=== PATIENT | male | born 1945 | race Caucasian/White ===

== ENCOUNTER 2016-07-21 15:30 | Outpatient (CLI) | payer MEDICARE, OTHER | END 2016-07-21 15:31 | disposition home or self-care (01) | DX: G47.33 Obstructive sleep apnea (adult) (pediatric) (principal) | CPT/HCPCS: 99214; G0463 ==

== ENCOUNTER 2016-08-29 13:12 | Emergency (ER) | payer MEDICARE, OTHER ==
[2016-08-29 13:17] VITALS: BP 164/92
--- NOTE | 2016-08-29 13:25 | ED Physician Documentation ---
PD HPI LOWER EXT INJURY - Stated complaint Stated Complaint: L KNEE PX - Chief complaint Chief Complaint: Ext Problem - History obtained from History obtained from: Patient PD PAST MEDICAL HISTORY - Past Medical History Cardiovascular: None, Arrhythmia Respiratory: None Neuro: None Endocrine/Autoimmune: None GI: GERD, Hepatitis : Benign prostate hypertrophy HEENT: None Psych: None Musculoskeletal: None Derm: None - Past Surgical History Past Surgical History: Yes General: Appendectomy, Other HEENT: Tonsil/Adenoidectomy Derm: Skin cancer surgery - Present Medications Home Medications: Ambulatory Orders Medication Instructions Recorded Confirmed ARIPiprazole [Abilify] 5 mg PO DAILY 10/04/12 09/09/14 Diltiazem HCl [Diltiazem 24Hr ER] 240 mg PO DAILY 10/04/12 09/09/14 Omeprazole [PriLOSEC] 20 mg PO DAILY 10/04/12 09/09/14 Hydrochlorothiazide 25 mg PO DAILY 11/11/13 09/09/14 Ezetimibe/Simvastatin [Vytorin 12/04/13 09/09/14 10-10 mg Tablet] Diltiazem HCl [Diltiazem 24Hr ER] 300 mg PO DAILY #30 cap.er.24h 09/09/14 Potassium Chloride 20 meq PO DAILY #10 tab.er.prt 09/09/14 - Allergies Allergies/Adverse Reactions: Allergies Allergy/AdvReac Type Severity Reaction Status Date / Time No Known Drug Allergies Allergy Verified 08/29/16 13:17 - Social History Does the pt smoke?: No Smoking Status: Never smoker Does the pt drink ETOH?: No Does the pt have substance abuse?: No - POLST Patient has POLST: No Results - Vitals Vitals: Vital Signs - 24 hr 08/29/16 13:15 Temperature 36.7 C Heart Rate 78 Respiratory 14 Rate Blood Pressure 164/92 H O2 Saturation 100 Oxygen O2 Source Room air
[2016-08-29] MEDS ORDERED: ACETAMINOPHEN 325 MG TABLET PO STA (14:24)
[2016-08-29] MEDS ORDERED: ACETAMINOPHEN 325 MG TABLET PO ONE (14:37)
--- NOTE | 2016-08-29 15:13 | ED Physician Documentation ---
History of Present Illness - Stated complaint Stated Complaint: L KNEE PX - Chief complaint Chief Complaint: Ext Problem - Additonal information Additional information: hx from pt 71 y/o male twisted L knee getting up into the truck cannot walk 2/2 pain no other injury otherwise well PD PAST MEDICAL HISTORY - Past Medical History Past Medical History: Yes Cardiovascular: None, Arrhythmia Respiratory: None Neuro: None Endocrine/Autoimmune: None GI: GERD, Hepatitis : Benign prostate hypertrophy HEENT: None Psych: None Musculoskeletal: None Derm: None - Past Surgical History Past Surgical History: Yes General: Appendectomy, Other HEENT: Tonsil/Adenoidectomy Derm: Skin cancer surgery - Present Medications Home Medications: Ambulatory Orders Medication Instructions Recorded Confirmed Omeprazole [PriLOSEC] 20 mg PO DAILY 10/04/12 09/09/14 Ezetimibe/Simvastatin [Vytorin 10 mg PO DAILY 12/04/13 09/09/14 10-10 mg Tablet] Diltiazem HCl [Diltiazem 24Hr ER] 300 mg PO DAILY #30 cap.er.24h 09/09/14 FLUoxetine [PROzac] 10 mg PO DAILY 08/29/16 08/29/16 Heart Medication 08/29/16 - Allergies Allergies/Adverse Reactions: Allergies Allergy/AdvReac Type Severity Reaction Status Date / Time No Known Drug Allergies Allergy Verified 08/29/16 13:17 - Social History Does the pt smoke?: No Smoking Status: Never smoker Does the pt drink ETOH?: No Does the pt have substance abuse?: No - Immunizations Immunizations are current?: Yes - POLST Patient has POLST: No PD ED PE NORMAL - Vitals Vital signs reviewed: Yes - Extremities Extremities: Other (L knee: mild edema TTP anterior aspect medial jt line, mild MCL laxity, no appreciable LCL ACL laxity or catch with meniscal testing, extensor mech intact, hurts to extend but can. MSV intact) Results - Vitals Vitals: Vital Signs - 24 hr 08/29/16 13:15 Temperature 36.7 C Heart Rate 78 Respiratory 14 Rate Blood Pressure 164/92 H O2 Saturation 100 Oxygen O2 Source Room air - Rads (name of study) knee Radiology: See rad report (no acute) Departure - Departure Disposition: 01 Home, Self Care Clinical Impression: Medial collateral ligament sprain of knee Qualifiers: Encounter type: initial encounter Laterality: right Qualified Code(s): S83.411A - Sprain of medial collateral ligament of right knee, initial encounter Condition: Good Instructions: ED Sprain Knee Collateral Ligaments Follow-Up: FRANCESCA SAINI [Primary Care Provider] - [facility] [Provider Group] (to get your blood pressure rechecked - it was high today) Comments: The xray looks fine Based on your exam I suspect that you have injured the medial collateral ligament. Recommend wearing the knee brace when ambulating for the next two weeks Ice and elevation will help the pain and swelling You can also take tylenol for the pain Follow up with orthopedics - you need to call to schedule
--- NOTE | 2016-08-29 15:23 | XRAY Preliminary Report ---
Exam: XR Knee 4 View LT IMPRESSION: Trace knee effusion without evidence of fracture or dislocation. [facility] SITE ID: [id number]
--- NOTE | 2016-08-29 15:26 | XRAY Report ---
EXAM: LEFT KNEE RADIOGRAPHY EXAM DATE: 08/29/2016 02:45 PM. CLINICAL HISTORY: Twisting injury, medial pain, cannot ambulate. COMPARISON: None. TECHNIQUE: 4 views. FINDINGS: Bones: No evidence of fracture. Enthesopathic spurring at the superior aspect of the patella. Joints: Trace knee effusion. Soft Tissues: Normal. No soft tissue swelling. IMPRESSION: Trace knee effusion without evidence of fracture or dislocation. [facility] Referring Provider Line: [phone] SITE ID: [id number]
== END 2016-08-29 15:40 | disposition home or self-care (01) ==
LOC: ED 13:12
DX: S83.411A Sprain of medial collateral ligament of right knee, initial encounter (principal); X50.1XXA Overexertion from prolonged static or awkward postures, initial encounter; V58.4XXA Person boarding or alighting a pick-up truck or van injured in noncollision transport accident, initial encounter; Y93.89 Activity, other specified
CPT/HCPCS: 73564; 99282; 99283; A9270

== ENCOUNTER 2017-07-11 09:26 | Outpatient (CLI) | payer MEDICARE, OTHER ==
[2017-07-11 10:41] LABS: HB2 TOTAL 14.4 g/dL; HEMOGLOBIN A1C 0.6 g/dL
[2017-07-11 10:56] LABS: MAGNESIUM 2.3 mg/dL (1.7-2.8)
== END 2017-07-11 09:27 | disposition home or self-care (01) ==
LOC: LAB 09:26
PROVIDERS: ATTEND Nurse Practitioner
DX: R53.83 Other fatigue (principal); R06.02 Shortness of breath; E66.01 Morbid (severe) obesity due to excess calories; Z68.43 Body mass index [BMI] 50.0-59.9, adult
CPT/HCPCS: 36415; 82607; 83036; 83540; 83735; 84425; 84466

== ENCOUNTER 2017-07-19 08:43 | Outpatient (CLI) | payer MEDICARE, OTHER ==
[2017-07-19 09:15] LABS: BASOPHILS % (AUTO) 0.8 %; EOSINOPHILS # (AUTO) 0.2 10^3/uL (0.0-0.7); EOSINOPHILS % (AUTO) 3.9 %; LYMPHOCYTES # (AUTO) 1.1 10^3/uL (1.5-3.5); LYMPHOCYTES % (AUTO) 21.1 %; MEAN CORPUSCULAR HEMOGLOBIN 27.4 pg (27.0-31.0); MEAN CORPUSCULAR HGB CONC 32.9 g/dL (32.0-36.0); MEAN CORPUSCULAR VOLUME 83.5 fL (80.0-94.0); MEAN PLATELET VOLUME 7.8 fL (7.4-11.4); MONOCYTES # (AUTO) 0.7 10^3/uL (0.0-1.0); NEUTROPHILS # (AUTO) 3.2 10^3/uL (1.5-6.6); NEUTROPHILS % (AUTO) 60.2 %; PLT - PLATELET COUNT 194 10^3/uL (130-450); RED BLOOD COUNT 4.74 10^6/uL (4.70-6.10); RED CELL DISTRIBUTION WIDTH 15.4 % (12.0-15.0); WHITE BLOOD COUNT 5.3 x10^3/uL (4.8-10.8)
[2017-07-19 09:50] LABS: VBG PH 7.416 (7.31-7.41)
[2017-07-19 10:01] LABS: ALBUMIN 3.9 g/dL (3.2-5.5); ALBUMIN/GLOBULIN RATIO 1.2 (1.0-2.2); ALKALINE PHOSPHATASE 49 IU/L (42-121); ALT ALANINE AMINOTRANSFERASE 20 IU/L (10-60); AST ASPARTATE AMINOTRANSFERASE 25 IU/L (10-42); BUN - BLOOD UREA NITROGEN 19 mg/dL (6-20); CALCIUM 8.6 mg/dL (8.5-10.3); CARBON DIOXIDE - CO2 25 mmol/L (21-32); CHLORIDE 104 mmol/L (101-111); CHOL/HDL RATIO 3.3 (<5.0); CHOLESTEROL 137 mg/dL; CREATININE 0.7 mg/dL (0.6-1.2); GFR - MDRD 111 (>89); GLUCOSE 101 mg/dL (70-100); HDL CHOLESTEROL 42 mg/dL; LDL CHOLESTEROL,CALCULATED 83 mg/dL; SODIUM 137 mmol/L (135-145); TOTAL PROTEIN 7.1 g/dL (6.7-8.2); VLDL CHOLESTEROL 12 mg/dL
[2017-07-19 10:12] LABS: THYROID STIMULATING HORMONE 1.55 uIU/mL (0.34-5.60)
[2017-07-19 10:17] LABS: FERRITIN 12.4 ng/mL (23.9-336.2)
== END 2017-07-19 08:44 | disposition home or self-care (01) ==
LOC: LAB 08:43
PROVIDERS: ATTEND Nurse Practitioner
DX: E78.5 Hyperlipidemia, unspecified (principal); R53.83 Other fatigue; R06.02 Shortness of breath; E66.01 Morbid (severe) obesity due to excess calories; Z68.43 Body mass index [BMI] 50.0-59.9, adult
CPT/HCPCS: 36415; 80053; 80061; 82306; 82330; 82728; 82747; 83721; 84443; 85025

== ENCOUNTER 2018-04-26 10:08 | Outpatient (CLI) | payer MEDICARE, OTHER | END 2018-04-26 10:09 | disposition home or self-care (01) | LOC: SC 10:08 | PROVIDERS: ATTEND Nurse Practitioner Family | DX: G47.33 Obstructive sleep apnea (adult) (pediatric) (principal) | CPT/HCPCS: 99214; G0463; 99212 ==

== ENCOUNTER 2018-07-13 07:55 | Outpatient (CLI) | payer MEDICARE, OTHER ==
[2018-07-13 10:18] LABS: BASOPHILS % (AUTO) 0.5 %; EOSINOPHILS # (AUTO) 0.2 10^3/uL (0.0-0.7); EOSINOPHILS % (AUTO) 3.3 %; LYMPHOCYTES # (AUTO) 1.2 10^3/uL (1.5-3.5); LYMPHOCYTES % (AUTO) 20.6 %; MEAN CORPUSCULAR HEMOGLOBIN 29.1 pg (27.0-31.0); MEAN CORPUSCULAR VOLUME 88.3 fL (80.0-94.0); MEAN PLATELET VOLUME 7.3 fL (7.4-11.4); MONOCYTES # (AUTO) 0.7 10^3/uL (0.0-1.0); MONOCYTES % (AUTO) 11.3 %; NEUTROPHILS # (AUTO) 3.8 10^3/uL (1.5-6.6); NEUTROPHILS % (AUTO) 64.3 %; PLT - PLATELET COUNT 223 10^3/uL (130-450); RED BLOOD COUNT 4.79 10^6/uL (4.70-6.10); RED CELL DISTRIBUTION WIDTH 14.6 % (12.0-15.0)
[2018-07-13 10:45] LABS: % IRON SATURATION 14 % (20-50); ALBUMIN 3.9 g/dL (3.2-5.5); ALBUMIN/GLOBULIN RATIO 1.2 (1.0-2.2); ALKALINE PHOSPHATASE 58 IU/L (42-121); ALT ALANINE AMINOTRANSFERASE 23 IU/L (10-60); AST ASPARTATE AMINOTRANSFERASE 23 IU/L (10-42); BILIRUBIN,TOTAL 0.6 mg/dL (0.2-1.0); BUN - BLOOD UREA NITROGEN 16 mg/dL (6-20); CALCIUM 8.9 mg/dL (8.5-10.3); CARBON DIOXIDE - CO2 27 mmol/L (21-32); CHLORIDE 100 mmol/L (101-111); CHOL/HDL RATIO 2.6 (<5.0); CHOLESTEROL 154 mg/dL; CREATININE 0.7 mg/dL (0.6-1.2); GFR - MDRD 111 (>89); GLUCOSE 95 mg/dL (70-100); HDL CHOLESTEROL 60 mg/dL; IRON 55 ug/dL (45-182); LDL CHOLESTEROL,CALCULATED 86 mg/dL; LDL/HDL RATIO 1.4 (<3.6); MAGNESIUM 2.6 mg/dL (1.7-2.8); SODIUM 139 mmol/L (135-145); TOTAL IRON BINDING CAPACITY 381 ug/dL (250-450); TOTAL PROTEIN 7.2 g/dL (6.7-8.2); TRANSFERRIN 272 mg/dL (180-329); VLDL CHOLESTEROL 8 mg/dL
[2018-07-13 10:52] LABS: VBG PH 7.356 (7.31-7.41)
[2018-07-13 11:03] LABS: HB2 TOTAL 14.9 g/dL; HEMOGLOBIN A1C 0.66 g/dL; HEMOGLOBIN A1C % 6.2 % (4.6-6.2)
[2018-07-13 11:16] LABS: THYROID STIMULATING HORMONE 1.91 uIU/mL (0.34-5.60)
[2018-07-13 11:23] LABS: FERRITIN 32.2 ng/mL (23.9-336.2)
== END 2018-07-13 07:56 | disposition home or self-care (01) ==
LOC: LAB 07:55
PROVIDERS: ATTEND Nurse Practitioner
DX: R53.82 Chronic fatigue, unspecified (principal); K91.2 Postsurgical malabsorption, not elsewhere classified; R73.03 Prediabetes; E78.5 Hyperlipidemia, unspecified
CPT/HCPCS: 36415; 80053; 80061; 82306; 82330; 82607; 82728; 82747; 83036; 83540; 83721; 83735; 84425; 84443; 84466; 85025

== ENCOUNTER 2018-12-18 09:11 | Outpatient (CLI) | payer MEDICARE, OTHER ==
[2018-12-18 09:56] LABS: BASOPHILS % (AUTO) 0.7 %; EOSINOPHILS # (AUTO) 0.2 10^3/uL (0.0-0.7); EOSINOPHILS % (AUTO) 4.1 %; HGB - HEMOGLOBIN 13.8 g/dL (14.0-18.0); LYMPHOCYTES # (AUTO) 1.3 10^3/uL (1.5-3.5); LYMPHOCYTES % (AUTO) 22.3 %; MEAN CORPUSCULAR HEMOGLOBIN 28.5 pg (27.0-31.0); MEAN CORPUSCULAR HGB CONC 31.3 g/dL (32.0-36.0); MEAN CORPUSCULAR VOLUME 90.9 fL (80.0-94.0); MEAN PLATELET VOLUME 9.3 fL (7.4-11.4); MONOCYTES # (AUTO) 0.6 10^3/uL (0.0-1.0); MONOCYTES % (AUTO) 11.3 %; NEUTROPHILS # (AUTO) 3.5 10^3/uL (1.5-6.6); NEUTROPHILS % (AUTO) 61.2 %; PLT - PLATELET COUNT 237 10^3/uL (130-450); RED BLOOD COUNT 4.85 10^6/uL (4.70-6.10); WHITE BLOOD COUNT 5.7 x10^3/uL (4.8-10.8)
[2018-12-18 10:20] LABS: HB2 TOTAL 14.7 g/dL; HEMOGLOBIN A1C 0.6 g/dL; HEMOGLOBIN A1C % 5.9 % (4.6-6.2)
[2018-12-18 10:22] LABS: % IRON SATURATION 26 % (20-50); ALBUMIN/GLOBULIN RATIO 1.3 (1.0-2.2); ALKALINE PHOSPHATASE 52 IU/L (42-121); ALT ALANINE AMINOTRANSFERASE 22 IU/L (10-60); AST ASPARTATE AMINOTRANSFERASE 23 IU/L (10-42); BILIRUBIN,TOTAL 0.8 mg/dL (0.2-1.0); BUN - BLOOD UREA NITROGEN 15 mg/dL (6-20); CALCIUM 8.7 mg/dL (8.5-10.3); CARBON DIOXIDE - CO2 26 mmol/L (21-32); CHLORIDE 104 mmol/L (101-111); CHOL/HDL RATIO 2.5 (<5.0); CHOLESTEROL 155 mg/dL; CREATININE 0.7 mg/dL (0.6-1.2); GFR - MDRD 111 (>89); GLUCOSE 95 mg/dL (70-100); HDL CHOLESTEROL 62 mg/dL; IRON 96 ug/dL (45-182); LDL CHOLESTEROL,CALCULATED 80 mg/dL; LDL/HDL RATIO 1.3 (<3.6); MAGNESIUM 2.3 mg/dL (1.7-2.8); SODIUM 139 mmol/L (135-145); TOTAL IRON BINDING CAPACITY 370 ug/dL (250-450); TOTAL PROTEIN 7.1 g/dL (6.7-8.2); TRANSFERRIN 264 mg/dL (180-329); VLDL CHOLESTEROL 13 mg/dL
[2018-12-18 10:31] LABS: THYROID STIMULATING HORMONE 1.43 uIU/mL (0.34-5.60)
== END 2018-12-18 09:12 | disposition home or self-care (01) ==
LOC: LAB 09:11
PROVIDERS: ATTEND Nurse Practitioner
DX: K91.2 Postsurgical malabsorption, not elsewhere classified (principal); R53.83 Other fatigue; Z98.84 Bariatric surgery status; E78.5 Hyperlipidemia, unspecified; R73.03 Prediabetes
CPT/HCPCS: 36415; 80053; 80061; 82306; 82607; 82747; 83036; 83540; 83721; 83735; 83970; 84425; 84443; 84466; 85025

== ENCOUNTER 2018-12-22 09:43 | Outpatient (CLI) | payer MEDICARE, OTHER ==
[2018-12-22 09:58] LABS: VBG PH 7.382 (7.31-7.41)
== END 2018-12-22 09:44 | disposition home or self-care (01) ==
LOC: LAB 09:43
PROVIDERS: ATTEND Nurse Practitioner
DX: K91.2 Postsurgical malabsorption, not elsewhere classified (principal); Z98.84 Bariatric surgery status; R53.83 Other fatigue; E78.5 Hyperlipidemia, unspecified; R73.03 Prediabetes
CPT/HCPCS: 82330

== ENCOUNTER 2019-03-05 16:40 | Outpatient (CLI) | payer MEDICARE, OTHER | END 2019-03-05 16:41 | disposition critical access hospital (66) | LOC: EMS 16:40 | PROVIDERS: ATTEND Surgery | DX: S06.9X1A Unspecified intracranial injury with loss of consciousness of 30 minutes or less, initial encounter (principal); W18.39XA Other fall on same level, initial encounter; Y92.001 Dining room of unspecified non-institutional (private) residence as the place of occurrence of the external cause; R10.9 Unspecified abdominal pain; R41.0 Disorientation, unspecified | CPT/HCPCS: A0425; A0429 ==

== ENCOUNTER 2019-03-05 16:51 | Emergency (ER) | payer MEDICARE, OTHER ==
--- NOTE | 2019-03-05 17:28 | ED Physician Documentation ---
History of Present Illness - Stated complaint Stated Complaint: GLF - Chief complaint Chief Complaint: Trauma Hd/Nk - History obtained from History obtained from: Patient, Family, EMS - History of Present Illness Timing: Today Pain level max: 8 Pain level now: 6 Improved by: rest Worsened by: movement - Additonal information Additional information: 74-year-old male states that he does not recall what happened. His states that he was trying to tie his shoes when he fell backwards striking his head on the floor. She did not see him fall. Patient does not recall anything prior to the event. Unclear if this was syncope or a mechanical fall. Patient denies any cardiac history. Denies any history of syncope. Denies any alcohol or drug use. He is complaining of neck and head pain. He did sustain a laceration to the occiput per EMS. Placed in a cervical collar. Brought in for further evaluation. No low back pain. No hip pain. No numbness or tingling. No focal neurological deficits. Review of Systems Ten Systems: 10 systems reviewed and negative Constitutional: denies: Fever, Chills Ears: denies: Drainage/discharge Nose: denies: Rhinorrhea / runny nose, Congestion Throat: denies: Sore throat Cardiac: denies: Chest pain / pressure Respiratory: denies: Dyspnea, Cough, Wheezing GI: denies: Abdominal Pain, Nausea, Vomiting, Diarrhea Skin: denies: Rash Musculoskeletal: denies: Back pain Neurologic: denies: Focal weakness, Numbness, Confused, Altered mental status, LOC PD PAST MEDICAL HISTORY - Past Medical History Past Medical History: Yes Cardiovascular: None, Arrhythmia Respiratory: None Endocrine/Autoimmune: None GI: GERD, Hepatitis : Benign prostate hypertrophy HEENT: None Psych: None Musculoskeletal: None Derm: None - Past Surgical History Past Surgical History: Yes General: Appendectomy, Other HEENT: Tonsil/Adenoidectomy Derm: Skin cancer surgery - Present Medications Home Medications: Ambulatory Orders Medication Instructions Recorded Confirmed Omeprazole [PriLOSEC] 20 mg PO DAILY 10/04/12 09/09/14 Ezetimibe/Simvastatin [Vytorin 10 mg PO DAILY 12/04/13 09/09/14 10-10 mg Tablet] dilTIAZem HCl [Diltiazem 24Hr ER] 300 mg PO DAILY #30 cap.er.24h 09/09/14 FLUoxetine [PROzac] 10 mg PO DAILY 08/29/16 08/29/16 Heart Medication 08/29/16 Ibuprofen [Motrin] 800 mg PO Q8H PRN #30 tablet 03/05/19 - Allergies Allergies/Adverse Reactions: Allergies Allergy/AdvReac Type Severity Reaction Status Date / Time No Known Drug Allergies Allergy Verified 03/05/19 17:05 - Social History Does the pt smoke?: No Smoking Status: Never smoker Does the pt drink ETOH?: No Does the pt have substance abuse?: No - Immunizations Immunizations are current?: Yes - POLST Patient has POLST: No PD ED PE NORMAL - Vitals Vital signs reviewed: Yes - General General: Alert and oriented X 3, No acute distress, Well developed/nourished - HEENT HEENT: PERRL, Ears normal, Moist mucous membranes, Pharynx benign, Other (Laceration to the occiput. No palpable skull fracture.) - Neck Neck: Supple, no meningeal sign, Other (Midline tenderness palpation. No step- off or deformity.) - Cardiac Cardiac: RRR, Strong equal pulses - Respiratory Respiratory: No respiratory distress, Clear bilaterally - Abdomen Abdomen: Soft, Non tender, Non distended - Back Back: No spinal TTP - Derm Derm: Warm and dry - Extremities Extremities: No deformity, No tenderness to palpate, Normal ROM s pain - Neuro Neuro: Alert and oriented X 3, architectural technologist 2-12 intact, No motor deficit, No sensory deficit, Normal speech Eye Opening: Spontaneous Motor: Obeys Commands Verbal: Oriented GCS Score: 15 - Psych Psych: Normal mood, Normal affect Results - Vitals Vitals: Vital Signs - 24 hr 03/05/19 03/05/19 03/05/19 17:00 18:00 20:09 Temperature 36.6 C 36.6 C Heart Rate 70 69 97 Respiratory 16 21 18 Rate Blood Pressure 189/79 H 201/99 H 186/103 H O2 Saturation 99 23 L 99 Oxygen O2 Source Room air - EKG (time done) 1750 Rate: Rate (enter#) (67) Rhythm: NSR [place]: Normal Intervals: Normal [place] QRS: Normal Ischemia: Normal ST segments - Labs Labs: Laboratory Tests 03/05/19 03/05/19 03/05/19 17:30 17:30 17:30 WBC 7.3 RBC 4.74 Hgb 14.0 Hct 43.8 MCV 92.4 MCH 29.5 MCHC 32.0 RDW 13.7 Plt Count 228 MPV 9.2 Neut # (Auto) 4.6 Lymph # (Auto) 1.5 [place] # (Auto) 0.8 Eos # (Auto) 0.3 Baso # (Auto) 0.1 Absolute Nucleated RBC 0.00 Nucleated RBC % 0.0 Sodium 138 Potassium 3.7 Chloride 101 Carbon Dioxide 29 Anion Gap 8.0 BUN 15 Creatinine 0.7 Estimated GFR (MDRD) 111 Glucose 93 Calcium 9.1 Total Bilirubin 0.5 AST 25 ALT 23 Alkaline Phosphatase 52 Troponin I High Sens Total Protein 7.4 Albumin 4.2 Globulin 3.2 Albumin/Globulin Ratio 1.3 Lipase 27 Urine Color Urine Clarity Urine pH Ur Specific [place] Urine Protein Urine Glucose (UA) Urine Ketones Urine Occult Blood Urine Nitrite Urine Bilirubin Urine Urobilinogen Ur Leukocyte Esterase Urine RBC Urine WBC Ur Squamous Epith Cells Urine Bacteria Ur Microscopic Review Urine Culture Comments Urine Opiates Screen Ur Oxycodone Screen Urine Methadone Screen Ur Propoxyphene Screen Ur Barbiturates Screen Ur Tricyclics Screen Ur Phencyclidine Scrn Ur Amphetamine Screen U Methamphetamines Scrn U Benzodiazepines Scrn Urine Cocaine Screen U Cannabinoids Screen Ethyl Alcohol < 5.0 03/05/19 03/05/19 17:30 19:20 WBC RBC Hgb Hct MCV MCH MCHC RDW Plt Count MPV Neut # (Auto) Lymph # (Auto) [place] # (Auto) Eos # (Auto) Baso # (Auto) Absolute Nucleated RBC Nucleated RBC % Sodium Potassium Chloride Carbon Dioxide Anion Gap BUN Creatinine Estimated GFR (MDRD) Glucose Calcium Total Bilirubin AST ALT Alkaline Phosphatase Troponin I High Sens 5.7 Total Protein Albumin Globulin Albumin/Globulin Ratio Lipase Urine Color YELLOW Urine Clarity CLEAR Urine pH 7.0 Ur Specific [place] 1.015 Urine Protein NEGATIVE Urine Glucose (UA) NEGATIVE Urine Ketones NEGATIVE Urine Occult Blood SMALL H Urine Nitrite NEGATIVE Urine Bilirubin NEGATIVE Urine Urobilinogen 0.2 (NORMAL) Ur Leukocyte Esterase NEGATIVE Urine RBC 6-10 H Urine WBC 0-3 Ur Squamous Epith Cells RARE Squamous Urine Bacteria Rare Ur Microscopic Review INDICATED Urine Culture Comments NOT INDICATED Urine Opiates Screen NEGATIVE Ur Oxycodone Screen NEGATIVE Urine Methadone Screen NEGATIVE Ur Propoxyphene Screen NEGATIVE Ur Barbiturates Screen NEGATIVE Ur Tricyclics Screen NEGATIVE Ur Phencyclidine Scrn NEGATIVE Ur Amphetamine Screen NEGATIVE U Methamphetamines Scrn NEGATIVE U Benzodiazepines Scrn NEGATIVE Urine Cocaine Screen NEGATIVE U Cannabinoids Screen NEGATIVE Ethyl Alcohol - Rads (name of study) head CT Radiology: Prelim report reviewed, EMP read contemporaneously, See rad report (A 13 mm scalp/subcutaneous hematoma in right parietal location with no underlying acute displaced calvarial fracture. No acute traumatic intracranial abnormality. ) C spine CT Radiology: Prelim report reviewed, EMP read contemporaneously, See rad report (1. No acute cervical spine abnormalities. 2. Multilevel degenerative disk disease, worst at C5-C6 and C6-C7. ) Procedures - Laceration (location) Occiput Length in cm: 5 Wound type: Linear, Into subcut fat, Clean Neurovascular status: Sensory intact, Vascular intact Wound Preparation: Irrigated copiously NS Skin layer closure: [place] Other: Patient tolerated well, No complications, Neurovascular intact, Tetanus UTD Complexity: Simple PD MEDICAL DECISION MAKING - ED course Complexity details: reviewed results, re-evaluated patient, considered differential, d/w patient, d/w family ED course: Patient sustained a ground-level fall today. He and his do not believe it was a syncopal event. No acute findings on laboratory testing, telemetry, EKG. No acute findings on head CT or cervical spine CT. C-collar removed after cervical spine CT. Laceration repaired. Tolerated well. Patient and family counseled regarding signs and symptoms for which I believe and urgent re- evaluation would be necessary. Patient with good understanding of and agreement to plan and is comfortable going home at this time This document was made in part using voice recognition software. While efforts are made to proofread this document, sound alike and grammatical errors may occur. Departure - Departure Disposition: 01 Home, Self Care Clinical Impression: Fall Qualifiers: Encounter type: initial encounter Qualified Code(s): W19.XXXA - Unspecified fall, initial encounter Head injury Qualifiers: Encounter type: initial encounter Qualified Code(s): S09.90XA - Unspecified injury of head, initial encounter Scalp laceration Qualifiers: Encounter type: initial encounter Qualified Code(s): S01.01XA - Laceration without foreign body of scalp, initial encounter Condition: Good Instructions: ED Head Injury Closed, ED Laceration All Follow-Up: Nahtan Loaiza MD [Primary Care Provider] - Within 1 week Prescriptions: Ibuprofen [Motrin] 800 mg PO Q8H PRN #30 tablet PRN Reason: PAIN &/OR FEVER Comments: Follow-up with your doctor in approximately 10-14 days for staple removal. Return if you notice redness, swelling or drainage from the wound. Do not drink alcohol or drive while on narcotic pain medicine. Note that many narcotic pain relievers also contain tylenol/acetaminophen. Please ensure that your total dose of acetaminophen from all sources does not exceed 3 grams (3000mg) per day. You may constipated on this medication, take a stool softener such as "Colace" twice a day while you are on it. Also recommend a [id number] laxative such as senna or MiraLAX any day that you do not have a bowel movement. If you received narcotic pain medication in the emergency department, do not drive or operate machinery for the next 24 hours. Discharge Date/Time: 03/05/19 20:23
[2019-03-05 17:41] LABS: BASOPHILS # (AUTO) 0.1 10^3/uL (0.0-0.1); BASOPHILS % (AUTO) 0.7 %; EOSINOPHILS # (AUTO) 0.3 10^3/uL (0.0-0.7); EOSINOPHILS % (AUTO) 3.4 %; LYMPHOCYTES # (AUTO) 1.5 10^3/uL (1.5-3.5); LYMPHOCYTES % (AUTO) 20.8 %; MEAN CORPUSCULAR HEMOGLOBIN 29.5 pg (27.0-31.0); MEAN CORPUSCULAR VOLUME 92.4 fL (80.0-94.0); MEAN PLATELET VOLUME 9.2 fL (7.4-11.4); MONOCYTES # (AUTO) 0.8 10^3/uL (0.0-1.0); MONOCYTES % (AUTO) 11.3 %; NEUTROPHILS # (AUTO) 4.6 10^3/uL (1.5-6.6); NEUTROPHILS % (AUTO) 63.5 %; PLT - PLATELET COUNT 228 10^3/uL (130-450); RED BLOOD COUNT 4.74 10^6/uL (4.70-6.10); RED CELL DISTRIBUTION WIDTH 13.7 % (12.0-15.0); WHITE BLOOD COUNT 7.3 x10^3/uL (4.8-10.8)
[2019-03-05 18:03] LABS: ALBUMIN 4.2 g/dL (3.2-5.5); ALBUMIN/GLOBULIN RATIO 1.3 (1.0-2.2); BILIRUBIN,TOTAL 0.5 mg/dL (0.2-1.0); CALCIUM 9.1 mg/dL (8.5-10.3); CREATININE 0.7 mg/dL (0.6-1.2); TOTAL PROTEIN 7.4 g/dL (6.7-8.2)
--- NOTE | 2019-03-05 18:25 | CT Report ---
Reason: Head trauma, mod-severe Procedure Date: 03/05/2019 Accession Number: [id number] / [id number] Procedure: CT - HEAD WO CPT Code: Final Report FULL RESULT: EXAM: CT HEAD EXAM DATE: 03/05/2019 05:50 PM. CLINICAL HISTORY: Head trauma, mod-severe. COMPARISON: None. TECHNIQUE: Multiaxial CT images were obtained from the foramen magnum to the vertex. Reformats: Sagittal and coronal. IV contrast: None. In accordance with CT protocol optimization, one or more of the following dose reduction techniques were utilized for this exam: automated exposure control, adjustment of mA and/or KV based on patient size, or use of iterative reconstructive technique. FINDINGS: Parenchyma: No intraparenchymal hemorrhage. No evidence of mass, midline shift, or CT findings of infarction. Wolf-white differentiation is distinct. Extraaxial Spaces: Normal for age. No subdural or epidural collections identified on. Ventricles: Normal in size and position. Sinuses and Orbits: Imaged paranasal sinuses, orbits, and mastoids show no significant abnormality. Bones: No evidence of fracture or calvarial defect. Other: A 13 mm scalp/subcutaneous hematoma in right parietal location with no underlying acute displaced calvarial fracture. IMPRESSION: A 13 mm scalp/subcutaneous hematoma in right parietal location with no underlying acute displaced calvarial fracture. No acute traumatic intracranial abnormality. [facility]
--- NOTE | 2019-03-05 18:33 | CT Report ---
Reason: Neck trauma, midline tenderness Procedure Date: 03/05/2019 Accession Number: [id number] / [id number] Procedure: CT - CERVICAL SPINE WO CPT Code: Final Report FULL RESULT: EXAM: CT CERVICAL SPINE WITHOUT CONTRAST DATE: 03/05/2019 05:50 PM. HISTORY: Neck trauma. Midline tenderness. COMPARISONS: None. TECHNIQUE: Thin-section axial images were acquired of the cervical spine without contrast. Post-processing: Coronal and sagittal reformats. Other: None. In accordance with CT protocol optimization, one or more of the following dose reduction techniques were utilized for this exam: automated exposure control, adjustment of mA and/or KV based on patient size, or use of iterative reconstructive technique. FINDINGS: Alignment: Loss of normal cervical lordosis. No scoliosis or spondylolisthesis. Bones: No fracture or bone lesion. Interspace Levels/Facets: C1-C2: Anterior degenerative changes. C2-C3: Unremarkable. C3-C4: Unremarkable. C4-C5: Moderate disk space narrowing and spurring. C5-C6: Severe disk space narrowing with spurring. C6-C7: Severe disk space narrowing with spurring. C7-T1: Unremarkable. Musculature: Normal. No fatty atrophy. Other: The paravertebral and prevertebral soft tissues are unremarkable. The lung apices are clear. IMPRESSION: 1. No acute cervical spine abnormalities. 2. Multilevel degenerative disk disease, worst at C5-C6 and C6-C7. [facility]
[2019-03-05 19:29] LABS: BILIRUBIN,URINE NEGATIVE (NEGATIVE); GLUCOSE, URINE (UA) NEGATIVE (NEGATIVE); KETONES,URINE (UA) NEGATIVE (NEGATIVE); LEUKOCYTE ESTERASE, URINE NEGATIVE (NEGATIVE); MUDS CUTOFF CONCENTRATIONS CUTOFF CONC BELOW:; NITRITE,URINE NEGATIVE (NEGATIVE); OCCULT BLOOD,URINE SMALL (NEGATIVE); PROTEIN,URINE NEGATIVE (NEGATIVE); UROBILINOGEN,URINE 0.2 (NORMAL) E.U./dL (NORMAL)
[2019-03-05 19:31] LABS: CLARITY,URINE CLEAR (CLEAR)
[2019-03-05 19:42] LABS: AMPHETAMINE SCREEN,URINE NEGATIVE (NEGATIVE); BENZODIAZEPINES SCREEN, URINE NEGATIVE (NEGATIVE); COCAINE SCREEN URINE NEGATIVE (NEGATIVE); METHADONE SCREEN, URINE NEGATIVE (NEGATIVE); METHAMPHETAMINES SCREEN, URINE NEGATIVE (NEGATIVE); OPIATE SCREEN, URINE NEGATIVE (NEGATIVE); OXYCODONE SCREEN, URINE NEGATIVE (NEGATIVE); PROPOXYPHENE SCREEN, URINE NEGATIVE (NEGATIVE); TRICYCLIC ANTIDEPRESSANT,URINE NEGATIVE (NEGATIVE)
[2019-03-05 19:56] LABS: BACTERIA,URINE Rare /HPF (None Seen); SQUAMOUS EPITHELIAL CELL,UR RARE Squamous (<= Few)
[2019-03-05] MEDS ORDERED: KETOROLAC 60 MG/2 ML VIAL IM STA (19:58)
[2019-03-05] MEDS ORDERED: HYDROcod/ACET 5/325 Prepack 4 PO STA (19:59)
[2019-03-05 20:10] VITALS: BP 186/103
== END 2019-03-05 20:23 | disposition home or self-care (01) ==
LOC: ED 16:51
DX: S01.01XA Laceration without foreign body of scalp, initial encounter (principal); S09.90XA Unspecified injury of head, initial encounter; W18.30XA Fall on same level, unspecified, initial encounter; Y93.89 Activity, other specified; M50.322 Other cervical disc degeneration at C5-C6 level
CPT/HCPCS: 12002; 36415; 70450; 72125; 80053; 80306; 80320; 81001; 81003; 83690; 84484; 85025; 87086; 93005; 96372; 99284

== ENCOUNTER 2019-05-01 13:44 | Outpatient (CLI) | payer MEDICARE, OTHER ==
[2019-05-01 15:06] VITALS: BP 160/88
--- NOTE | 2019-05-01 15:06 | SLEEP CARE CONSULTATION ---
Information from patient questionnaire entered by Radha Kaur. I have reviewed and concur with the information entered by Radha Kaur. This document represents the service I personally performed and the decisions made by me, Adrianne Draper, RN, MSN, [employer]. History of Present Illness Previous diagnosis: Severe, Obstructive Sleep Apnea-Hypopnea Syndrome AHI: 78.8 Reason for follow up: annual Equipment type: CPAP Equipment obtained from: [employer] Mask style: Full face (Air Fit) Mask brand: Resmed Backup mask available: Yes (old mask ) Last cushion change: a few days Prior sleep studies: Yes Year and Where: [facility] CPAP Compliance Data - Data Reviewed with Patient Average duration of nightly device use: 6h 47s Compliance rate %: 81.7 Current pressure setting (cmH2O): 20 Humidity settin Average residual AHI: 6.5 Average large leak: 13m 8s Subjective Patient concerns: reports: mask leak noise (as cushion gets older. This occurs before due to be covered by insurance. Wipes used to clean inside of mask but not what touches face. ), dry mouth, nose, throat (only when reservoir dry - rare). denies: aerophagia, mask discomfort, air blowing in eyes, condensation in mask/hose, nasal congestion, epistaxis Observed to snore while using device: No Current pressure setting perceived as: comfortable On therapy, patient: reports: sleeping better (cannot sleep without it ), awakening more refreshed, being more awake and alert during the day, more rested overall. denies: drowsiness while driving Initial Parker Sleepiness Scale score: 16 Current Parker Sleepiness Scale score: 10 Allergies and Home Medications Known drug allergies: No Home medication list reviewed: Yes Allergy and home medication list: Medication Name (generic/name brand) Strength & Dosage Tamsulosin HCI 0.4mg cap one daily Vytorin (Ezetimibe-Simvastatin) 10-40mg tab one daily Pramipexole Dihydrochloride 0.25mg tab 1-2 at dinner time Lisinopril 10mg tab one daily Aspirin 81mg tab one daily Bariatric Multivitamin Bid As directed Calcium Citrate Bid As directed Review of Systems Review of systems same as previous: No (syncope in February - fractured skull - CT scan / holter monitor negative) Physical Exam Blood Pressure: 160/88 Cuff size: long Heart Rate: 68 O2 Saturation: 98 Height: 5 ft 11 in Weight: 343 lb Weight change since last visit: gained 12 pounds Body Mass Index: 47.8 BMI Classification: Morbidly Obese Impression and Plan 1. Obstructive Sleep Apnea-Hypopnea Syndrome, severe , with good treatment compliance and slightly elevated residual AHI. On CPAP therapy, the patient has better sleep quality and is more rested overall. Elevated residual AHI could be from his mask leaks as well as his increase in weight. Thus he is advised to clean mask more thoroughly daily. Cleaning PAP equipment questions answered and importance of regular cleaning discussed. Daily cleaning of the mask can be incorporated into routine by completing during time when patient brushes teeth in the morning. Regularly cleaning the mask will reduce incidence of skin irritation that can occur from accumulation of skin oils on the skin and mask leaks. The humidifier is recommended to be emptied daily to allow it to dry out thoroughly between use. The rest of the equipment should be cleaned weekly. Reference sheet given. Patient advised to check manual for further questions. Patient has gained weight. Currently patients BMI is 47.8obesity class. Obesity increases the risk of apnea, CPAP pressure requirements and overall health risks especially cardiovascular and diabetes. Thus patient is advised to lose weight. Weight loss can be done with reducing portion size, reducing refined foods and balancing content with vegetables, fruit and protein. In addition tracking food intake will allow awareness of how to modify diet to achieve weight loss goals. Also eating more slowly will allow more awareness of food intake and enjoyment of food while assisting patient to modify intake at each meal. A diet consultation can be helpful in achieving optimal weight loss goals. He has worked with one in the past The BMI chart was reviewed. The patient would like to reduce to 300 pounds bringing their BMI down to about 42. Patient encouraged to discuss their weight loss goals with their PCP and consider a referral to a overhead crane technician. He would eventually like to get down to about 200 pounds with BMI 28. The patient's CPAP pressure [range should accommodate some weight loss. Symptoms to report for additional pressure adjustment discussed. If weight loss and mask leaks control does not reduce residual AHI, he may required a BiPAP to control his apnea. The process discussed. It may require another sleep study to find the o Patient's apnea severity and rationale for treatment to reduce apnea, improve s leep quality and reduce cardiovascular and cerebrovascular events was reviewed. I also reviewed the benefit of consistent device use of CPAP for hypertension, depression/anxiety. 2. Elevated blood pressure, 160/90, no chest pain pain or short ness of breath. Monitors at home and running in yellow on wrist BP cuff. He was advised of health risks of elevated blood pressure not well controlled and to monitor at home and follow up with PCP for further evaluation. BP monitor card given. He is advised to write down numbers not color indicators. Patient agreed with plan. * Continue CPAP pressure at 20 cmH2O * Implement cleaning methods discussed. * Notify me if snoring with mask or feeling that the pressure is too much or too little * Attempt to lose weight * Follow up with PCP for BP evaluation and referral. * Call this office if any problems using CPAP * Return for follow up in 3 months, or sooner if concerns arise Time Spent with Patient (minutes): 30 I spent 100% of this visit face to face with the patient with greater than 50% of this was spent time counseling the patient and coordination of care.
== END 2019-05-01 13:45 | disposition home or self-care (01) ==
LOC: SC 13:44
PROVIDERS: ATTEND Nurse Practitioner Family
DX: G47.33 Obstructive sleep apnea (adult) (pediatric) (principal); E66.01 Morbid (severe) obesity due to excess calories; Z68.42 Body mass index [BMI] 45.0-49.9, adult; R03.0 Elevated blood-pressure reading, without diagnosis of hypertension
CPT/HCPCS: 99214; G0463; 99212

== ENCOUNTER 2019-05-26 12:57 | Outpatient (CLI) | payer MEDICARE, OTHER ==
--- NOTE | 2019-05-27 04:53 | Ultrasound Report ---
Reason: FREQUENCY OF MICTURITION Procedure Date: 05/26/2019 Accession Number: [id number] / [id number] Procedure: US - Bladder CPT Code: Final Report FULL RESULT: EXAM: PELVIS ULTRASOUND, LIMITED EXAM DATE: 05/27/2019. CLINICAL HISTORY: FREQUENCY OF MICTURITION. COMPARISON: None. TECHNIQUE: Real-time scanning was performed with static images obtained. FINDINGS: Bladder: The initial bladder volume was 150 mL. A 82 mL postvoid residual bladder volume is noted. Bilateral ureteral jets documented. Increased wall thickness with trabeculation. No masses evident. Other: Enlarged prostate volume 54 mL. IMPRESSION: 82 mL residual post void bladder volume. Trabeculated bladder. Prostatic hypertrophy. RADIA
== END 2019-05-26 12:58 | disposition home or self-care (01) ==
LOC: DI 12:57
PROVIDERS: ATTEND Internal Medicine
DX: N40.1 Benign prostatic hyperplasia with lower urinary tract symptoms (principal); R35.0 Frequency of micturition; N32.89 Other specified disorders of bladder
CPT/HCPCS: 76857

== ENCOUNTER 2019-08-01 13:58 | Outpatient (CLI) | payer MEDICARE, OTHER ==
--- NOTE | 2019-08-01 13:50 | SLEEP CARE CONSULTATION ---
Information from patient questionnaire entered by Helena Deshpande. I have reviewed and concur with the information entered by Helena Deshpande. This document represents the service I personally performed and the decisions made by me, Adrianne Draper, RN, MSN, AUTOMATION TECHNICIAN. History of Present Illness Service Date and Time: 08/01/2019 1330 Previous diagnosis: Very Severe, Obstructive Sleep Apnea-Hypopnea Syndrome AHI: 78.8 (in 2009) Reason for follow up: three month Equipment type: CPAP Equipment obtained from: [employer] (getting supplies supplies as needed) Mask style: Full face Backup mask available: Yes (old mask ) Last cushion change: last week Year and Where: 2009 - [facility] Type of Sleep Study: Polysomnography CPAP Compliance Data - Data Reviewed with Patient Average duration of nightly device use: 6.1 Compliance rate %: 90 (90 days) Current pressure setting (cmH2O): 20 Humidity settin Heated hose settin Average residual AHI: 5.0 Average large leak: 2 min 50 sec Subjective Patient concerns: reports: mask leak noise (only when needs to change mask ). denies: aerophagia, mask discomfort, air blowing in eyes, condensation in mask/hose, nasal congestion, dry mouth, nose, throat, epistaxis, other Observed to snore while using device: No Current pressure setting perceived as: comfortable (as long as uses the ramp) On therapy, patient: reports: sleeping better, awakening more refreshed, being more awake and alert during the day, more rested overall. denies: drowsiness while driving Initial [place] Sleepiness Scale score: 16 (in 2009) Allergies and Home Medications Home medication list reviewed: No Review of Systems Review of systems same as previous: No (plantar fascitis - PT treatment ) Physical Exam Height: 5 ft 11 in Weight: 330 lb (home weight ) Weight change since last visit: lost 5 pounds Body Mass Index: 46.0 BMI Classification: Morbidly Obese Impression and Plan 1. Obstructive Sleep Apnea-Hypopnea Syndrome, very severe, with good treatment compliance and good apnea control. On CPAP therapy, the patient has better sleep quality and is more rested overall. He is very pleased with CPAP treatment. He does not sleep without it. He is continuing to work on weight loss. He is working with his palliative medicine physician since his bariatric surgery. I praised him on his success so far. Obesity can increase health risks similar to untreated severe Sleep apnea. I explained how significant weight loss can reduce apnea risk as well as CPAP pressure requirements. Symptoms to report for CPAP pressure reduction discussed with significant weight loss. Patient's apnea severity and rationale for treatment to reduce apnea, improve sleep quality and reduce hypertension, cardiovascular and cerebrovascular events was reviewed. * Continue CPAP pressure at 20 cmH2O * Notify me if snoring with mask or feeling that the pressure is too much or too little * Continue to lose weight * Call this office if any problems using CPAP * Return for follow up in 1 year , or sooner if concerns arise Visit Type: Telehealth Phone (to reduce risk of Covid 19 exposure) Patient Location: Home Location of Provider: Home Patient agrees and consents to this telehealth visit type: Yes Patient agrees to have their insurance billed: Yes Time Spent with Patient (minutes): 10 Provider Statement: I spent 100% of the Telehealth Phone Call with the patient with greater than 50% spent counseling the patient and coordination of care.
== END 2019-08-01 13:59 | disposition home or self-care (01) ==
LOC: SC 13:58
PROVIDERS: ATTEND Nurse Practitioner Family
DX: G47.33 Obstructive sleep apnea (adult) (pediatric) (principal); E66.01 Morbid (severe) obesity due to excess calories; Z68.42 Body mass index [BMI] 45.0-49.9, adult

== ENCOUNTER 2020-01-24 16:46 | Outpatient (CLI) | payer MEDICARE, OTHER | END 2020-01-24 16:47 | disposition home or self-care (01) | LOC: COV 16:46 | PROVIDERS: ATTEND Family Medicine | DX: R05 Cough (principal); Z20.828 Contact with and (suspected) exposure to other viral communicable diseases; R06.02 Shortness of breath; R53.83 Other fatigue; R11.2 Nausea with vomiting, unspecified; R09.81 Nasal congestion; R68.83 Chills (without fever) ==

== ENCOUNTER 2020-07-09 08:44 | Outpatient (CLI) | payer MEDICARE, OTHER ==
--- NOTE | 2020-07-09 09:26 | SLEEP CARE CONSULTATION ---
Information from patient questionnaire entered by Helena Deshpande. I have reviewed and concur with the information entered by Helena Deshpande. This document represents the service I personally performed and the decisions made by , Francesca Galeano ARNP. History of Present Illness Service Date and Time: 07/09/2020 0844 Previous diagnosis: Very Severe, Obstructive Sleep Apnea-Hypopnea Syndrome AHI: 78.8 (in 2009) Reason for follow up: annual (last seen 07/2019) Equipment type: CPAP Equipment obtained from: [employer] (getting supplies as needed) Mask style: Full face Backup mask available: Yes (old mask) Last cushion change: 2 weeks ago Prior sleep studies: Yes Year and Where: 2009 - [facility] HPI additional information: AZALIA ARNETT was diagnosed to have very severe, AHI 78.8, obstructive sleep apnea-hypopnea syndrome and returned today for CPAP therapy annual follow-up. CPAP Compliance Data - Data Reviewed with Patient Average duration of nightly device use: 5 hours 26 minutes Compliance rate %: 78.3 Current pressure setting (cmH2O): 20 Humidity settin Heated hose settin Average residual AHI: 7.0 Subjective Patient concerns: reports: dry mouth, nose, throat. denies: aerophagia, mask discomfort, air blowing in eyes, mask leak noise, condensation in mask/hose, nasal congestion, epistaxis, other Observed to snore while using device: No Current pressure setting perceived as: comfortable On therapy, patient: reports: sleeping better, awakening more refreshed, being more awake and alert during the day, more rested overall. denies: drowsiness while driving Initial [place] Sleepiness Scale score: 16 (in 2009) Current [place] Sleepiness Scale score: 10 Allergies and Home Medications Home medication list reviewed: Yes (stopped omeprazole, Prozac) Review of Systems Review of systems same as previous: Yes (no changes) Physical Exam Heart Rate: 71 O2 Saturation: 96 Height: 5 ft 11 in Weight: 355 lb Weight change since last visit: 25 lb gain Body Mass Index: 49.5 BMI Classification: Morbidly Obese Impression and Plan 1. Obstructive Sleep Apnea-Hypopnea Syndrome, very severe, with good treatment compliance and fair apnea control with mildly. On CPAP therapy, the patient has better sleep quality and is more rested overall. Patient has gained weight, 25 pounds. Currently patients BMI is 49.5. Obesity increases the risk of apnea, CPAP pressure requirements and overall health risks especially cardiovascular and diabetes. Thus patient is advised to continue to lose weight. Weight loss can be done with reducing portion size, reducing refined foods and balancing content with vegetables, fruit and whole grain foods. The patient would like to reduce to 55 pounds bringing their BMI down to about 300 lbs. Patient going to talk to doctor with previous bariatric surgery, gastric sleeve 2 years ago, today about weight loss. He may be eligible for a machine upgrade this year. He will check with [employer] on his status. He has mild elevation of residual AHI but is maxed out at 20 cmH2O. I reviewed his last study that determined he would benefit from a BIPAP ASV. I would like to repeat the titration study to verify prior to upgrading his machine to see if we need to change from CPAP to BIPAP. He voiced understanding and agreement with plan. He will let me know if he would like to proceed with titration study. Patient's apnea severity and rationale for treatment to reduce apnea, improve sleep quality and reduce cardiovascular and cerebrovascular events was reviewed. * Continue autoCPAP pressure at 20 cmH2O * Notify me if snoring with mask or feeling that the pressure is too much or too little * Attempt to lose weight * Call this office if any problems using CPAP * Return for follow up in 1 year, or sooner if concerns arise Counseling Topics: Spare mask, Weight loss health impact Visit Type: In Office Time Spent with Patient (minutes): 27 Provider Statement: I spent 100% of the Face to Face Visit with the patient with greater than 50% spent counseling the patient and coordination of care.
== END 2020-07-09 08:45 | disposition home or self-care (01) ==
LOC: SC 08:44
PROVIDERS: ATTEND Nurse Practitioner Family
DX: G47.33 Obstructive sleep apnea (adult) (pediatric) (principal); E66.01 Morbid (severe) obesity due to excess calories; Z68.42 Body mass index [BMI] 45.0-49.9, adult
CPT/HCPCS: 99213; G0463; 99212

== ENCOUNTER 2020-08-20 15:19 | Outpatient (CLI) | payer MEDICARE, OTHER ==
--- NOTE | 2020-08-20 17:07 | XRAY Report ---
PROCEDURE: Lumbar Spine 2 View INDICATIONS: LOW BACK PAIN W/RADICULOPATHY TECHNIQUE: 2 views of the lumbar spine were acquired. COMPARISON: None. FINDINGS: Bones: 5 [id number] vertebrae are present. There is trace retrolisthesis of L1 on L2, L2 on L3 , L5 on S1. There is severe disc and foraminal narrowing noted L5-S1, moderate L4-5. Multilevel mild to moderate disc space narrowing is present throughout the remainder of the lumbar spine most notable at L2-3. No vertebral body compression fractures. No suspicious bony lesions. Soft tissues: Overlying bowel gas pattern is normal. No suspicious soft tissue calcifications. IMPRESSION: Degenerative changes most notable at L5-S1. If concern persists for further evaluation o f foraminal narrowing and potential nerve root compression, MRI is recommended. Reviewed by: Loni Sims MD on 08/20/2020 5:06 PM PDT Approved by: Loni Sims MD on 08/20/2020 5:06 PM PDT Station ID: [id number]
== END 2020-08-20 15:20 | disposition home or self-care (01) ==
LOC: DI 15:19
PROVIDERS: ATTEND Physician Assistant Medical
DX: M54.41 Lumbago with sciatica, right side (principal); M47.27 Other spondylosis with radiculopathy, lumbosacral region

== ENCOUNTER 2020-08-24 07:26 | Outpatient (CLI) | payer MEDICARE, OTHER ==
--- NOTE | 2020-08-24 12:01 | Ultrasound Report ---
PROCEDURE: Aorta Screening INDICATIONS: AAA SCREENING TECHNIQUE: Real time scanning was performed of the aorta and iliac arteries, with image documentatio n. COMPARISON: Retroperitoneal ultrasound 07/26/2019 FINDINGS: Aorta: Proximal aortic diameter measures 2.7 cm. Mid-aorta measures 2.4 by cm. Distal aortic d iameter is 2.1 cm. Iliac arteries: Right common iliac artery measures 1.4 cm. Left common iliac artery measures 1.6 cm. IMPRESSION: No aneurysm found. Reviewed by: Kvng Schuster MD on 08/24/2020 11:59 AM PDT Approved by: Kvng Schuster MD on 08/24/2020 11:59 AM PDT Station ID: [id number]
== END 2020-08-24 07:27 | disposition home or self-care (01) ==
LOC: DI 07:26
PROVIDERS: ATTEND Physician Assistant Medical
DX: Z13.6 Encounter for screening for cardiovascular disorders (principal)

== ENCOUNTER 2020-11-08 11:38 | Outpatient (CLI) | payer MEDICARE, OTHER | END 2020-11-08 23:59 | disposition critical access hospital (66) | LOC: EMS 11:38 | DX: M54.5 Low back pain (principal); R20.0 Anesthesia of skin; R20.2 Paresthesia of skin | CPT/HCPCS: A0425; A0429 ==

== ENCOUNTER 2020-11-08 11:57 | Emergency (ER) | payer MEDICARE, OTHER ==
[2020-11-08] MEDS ORDERED: HYDROmorphone 1 MG/ML CARPUJECT IVP STA ×2 (12:08→14:07)
[2020-11-08] MEDS ORDERED: KETOROLAC 30 MG/ML VIAL IVP STA (12:08)
[2020-11-08] MEDS ORDERED: ONDANSETRON 4 MG/2 ML VIAL IVP STA (12:08)
--- NOTE | 2020-11-08 12:09 | ED Physician Documentation ---
PD HPI BACK PAIN - Stated complaint Stated Complaint: FALL - History obtained from History obtained from: Patient - Additional information Additional information: 75-year-old gentleman with history of sciatica has had a flare of his sciatica involving the right leg for the last week which was not helped by a Toradol shot he got in the clinic yesterday. It is caused a fall today because of right leg weakness and numbness. He was uninjured in the fall. He denies acute bowel or bladder symptoms knowing that he will always have some incontinence from a large bladder but that is not worse in the last few days or week. He also denies s addle anesthesia or fevers. He is unable to walk at this point due to the pain and of the right leg weakness. Review of Systems Ten Systems: 10 systems reviewed and negative Constitutional: reports: Reviewed and negative Cardiac: reports: Reviewed and negative Respiratory: reports: Reviewed and negative PD PAST MEDICAL HISTORY - Past Medical History Cardiovascular: None, Arrhythmia Respiratory: None Endocrine/Autoimmune: None GI: GERD, Hepatitis : Benign prostate hypertrophy HEENT: None Psych: None Musculoskeletal: None Derm: None - Past Surgical History Past Surgical History: Yes General: Appendectomy, Other HEENT: Tonsil/Adenoidectomy Derm: Skin cancer surgery - Present Medications Home Medications: Ambulatory Orders Medication Instructions Recorded Confirmed Omeprazole [PriLOSEC] 20 mg PO DAILY 10/04/12 09/09/14 Ezetimibe/Simvastatin [Vytorin 10 mg PO DAILY 12/04/13 09/09/14 10-10 mg Tablet] dilTIAZem HCl [Diltiazem 24Hr ER] 300 mg PO DAILY #30 cap.er.24h 09/09/14 FLUoxetine [PROzac] 10 mg PO DAILY 08/29/16 08/29/16 Heart Medication 08/29/16 Ibuprofen [Motrin] 800 mg PO Q8H PRN #30 tablet 03/05/19 Oxycodone HCl/Acetaminophen 1 - 2 each PO Q6H PRN #14 tablet 11/08/20 [Percocet 5-325 mg Tablet] predniSONE [Deltasone] 20 mg PO [id number] #21 tab 11/08/20 - Allergies Allergies/Adverse Reactions: Allergies Allergy/AdvReac Type Severity Reaction Status Date / Time No Known Drug Allergies Allergy Verified 11/08/20 12:20 - Social History Does the pt smoke?: No Smoking Status: Never smoker Does the pt drink ETOH?: No Does the pt have substance abuse?: No - Immunizations Immunizations are current?: Yes - POLST Patient has POLST: No PD ED PE NORMAL - Vitals Vital signs reviewed: Yes - General General: Alert and oriented X 3, Other (He appears uncomfortable and winces with motion, laying on the left hip.) - HEENT HEENT: PERRL, EOMI - Neck Neck: Supple, no meningeal sign, No bony TTP - Abdomen Abdomen: Soft, Non tender - Back Back: No spinal TTP - Derm Derm: Normal color, Warm and dry - Extremities Extremities: Other (He has diminished sensation in the lower leg on both sides right worse than left. At most 1+ patellar reflexes and no Achilles reflexes. Sensation in the upper legs is normal.) - Neuro Neuro: Alert and oriented X 3, Normal speech - Psych Psych: Normal mood, Normal affect Results - Vitals Vitals: Vital Signs - 24 hr 11/08/20 12:20 Temperature 36.5 C Heart Rate 70 Respiratory 18 Rate Blood Pressure 169/83 H O2 Saturation 100 Oxygen O2 Source Room air - Labs Labs: Laboratory Tests 11/08/20 11/08/20 13:11 13:11 WBC 6.1 RBC 4.93 Hgb 14.7 Hct 44.7 MCV 90.7 MCH 29.8 MCHC 32.9 RDW 13.9 Plt Count 209 MPV 9.1 Neut # (Auto) 4.2 Lymph # (Auto) 1.0 L [place] # (Auto) 0.6 Eos # (Auto) 0.2 Baso # (Auto) 0.0 Absolute Nucleated RBC 0.00 Nucleated RBC % 0.0 Sodium 139 Potassium 4.1 Chloride 104 Carbon Dioxide 26 Anion Gap 9.0 BUN 15 Creatinine 0.7 Estimated GFR (MDRD) 110 Glucose 92 Calcium 9.2 PD MEDICAL DECISION MAKING - ED course Complexity details: reviewed old records (X-rays of the lumbar spine obtained August 17 of this year showing degenerative changes with severe disc and foraminal narrowing at L5/S1 and moderate at L4/L5.) ED course: 75-year-old gentleman presents with sciatica, potentially some spinal stenosis based on his symptoms but no evidence of an acute cauda equina. Pain much better after divided doses of meds here. He was able to walk with a walker but required a lot of time and was quite slow. Had concerns about him going home but he very much wanted to, I made it clear that I was offering to keep him in the emergency department pending SNF placement but he declined. Departure - Departure Disposition: Home, Self Care Clinical Impression: Fall from ground level Sciatica Qualifiers: Laterality: right Qualified Code(s): M54.31 - Sciatica, right side Condition: Good Instructions: ED Sciatica Prescriptions: predniSONE [Deltasone] 20 mg PO [id number] #21 tab Oxycodone HCl/Acetaminophen [Percocet 5-325 mg Tablet] 1 - 2 each PO Q6H PRN #14 tablet PRN Reason: pain Comments: Your symptoms are concerning for spinal stenosis, you should follow-up with your doctor and consider MRI of the back giving all the problems you are having. Return for new or worsening symptoms. I am prescribing a short course of narcotic pain medication for you. These are potentially dangerous and addictive medications that should be used carefully. These medications may constipate you. Take an lezm-bae-ongolic stool softener (docusate) twice daily with plenty of water while taking these medications. If you go 24 hours without a bowel movement, take jooy-lsh-oacthdz miralax, per package instructions. Do not drink or drive while taking these medications. If you received narcotic or sedating medications while in the emergency department, do not drive for 24 hours. Store this medication in a safe, secure place and out of reach of children. It is a violation of federal law to give or sell this medication to another person or to use in a manner other than prescribed. The ED will not refill narcotic prescriptions, including prescriptions lost or stolen. To dispose of unwanted medications: 1. [facility] at [address] in [place] has a medication drop box. They accept prescription medications (in pill form) Tuesday through Tuesday 9:00 a.m. to 5:00 p.m. 2. The [facility] [employer] accepts prescription medications (in pill form only) for disposal year round. Call for more information. 3. Contact the [facility] for the next [facility] sponsored prescription drug collection event. , [phone], or [phone]; Note that many narcotic pain relievers also contain Tylenol/acetaminophen. Please ensure that your total dose of acetaminophen from all sources does not e xceed 3 g (3000 mg) per day.
[2020-11-08] MEDS ORDERED: DEXAMETHASONE 10 MG/ML VIAL IVP STA (12:13)
[2020-11-08 13:15] LABS: BASOPHILS % (AUTO) 0.5 %; EOSINOPHILS # (AUTO) 0.2 10^3/uL (0.0-0.7); EOSINOPHILS % (AUTO) 3.8 %; HCT - HEMATOCRIT 44.7 % (42.0-52.0); HGB - HEMOGLOBIN 14.7 g/dL (14.0-18.0); LYMPHOCYTES % (AUTO) 16.5 %; MEAN CORPUSCULAR HEMOGLOBIN 29.8 pg (27.0-31.0); MEAN CORPUSCULAR HGB CONC 32.9 g/dL (32.0-36.0); MEAN CORPUSCULAR VOLUME 90.7 fL (80.0-94.0); MEAN PLATELET VOLUME 9.1 fL (7.4-11.4); MONOCYTES # (AUTO) 0.6 10^3/uL (0.0-1.0); MONOCYTES % (AUTO) 9.8 %; NEUTROPHILS # (AUTO) 4.2 10^3/uL (1.5-6.6); NEUTROPHILS % (AUTO) 69.2 %; PLT - PLATELET COUNT 209 10^3/uL (130-450); RED BLOOD COUNT 4.93 10^6/uL (4.70-6.10); RED CELL DISTRIBUTION WIDTH 13.9 % (12.0-15.0); WHITE BLOOD COUNT 6.1 x10^3/uL (4.8-10.8)
[2020-11-08 13:25] LABS: CALCIUM 9.2 mg/dL (8.5-10.3); CREATININE 0.7 mg/dL (0.6-1.2); POTASSIUM 4.1 mmol/L (3.5-5.0)
[2020-11-08 15:27] VITALS: BP 150/80
== END 2020-11-08 15:10 | disposition home or self-care (01) ==
LOC: EDUNIT# → ED 11:57 → SUPCPDRO 11:57 → ED 15:10
DX: M54.31 Sciatica, right side (principal); W18.30XA Fall on same level, unspecified, initial encounter
CPT/HCPCS: 36415; 80048; 85025; 96374; 96375; 96376; 99284; 99285; J1170

== ENCOUNTER 2020-11-09 10:36 | Outpatient (CLI) | payer MEDICARE, OTHER | END 2020-11-09 10:37 | disposition short-term general hospital (02) | LOC: EMS 10:36 | DX: M54.5 Low back pain (principal); R20.0 Anesthesia of skin | CPT/HCPCS: A0425; A0429 ==

== ENCOUNTER 2021-02-20 15:13 | Outpatient (CLI) | payer MEDICARE, OTHER ==
--- NOTE | 2021-02-20 17:02 | XRAY Report ---
PROCEDURE: Chest 2 View X-Ray INDICATIONS: POSSIBLE PNEUMONIA TECHNIQUE: 2 view(s) of the chest. COMPARISON: None. FINDINGS: Surgical changes and devices: None. Lungs and pleura: No pleural effusions or pneumothorax. Lungs are clear. Mediastinum: Mediastinal contours are normal. Heart size is normal. Bones and chest wall: No suspicious bony abnormalities. Soft tissues appear unremarkable. IMPRESSION: No acute cardiopulmonary disease process. Reviewed by: Jazmine Condon MD, PhD on 02/20/2021 5:01 PM [facility] Approved by: Jazmine Condon MD, PhD on 02/20/2021 5:01 PM PST Station ID: [id number]
== END 2021-02-20 15:14 | disposition home or self-care (01) ==
LOC: DI 15:13
PROVIDERS: ATTEND Student in an Organized Health Care Education/Training Program
DX: R06.00 Dyspnea, unspecified (principal); R05.1 Acute cough

== ENCOUNTER 2021-07-21 11:13 | Outpatient (CLI) | payer MEDICARE, OTHER ==
[2021-07-21 11:46] VITALS: BP 128/76
--- NOTE | 2021-07-21 11:46 | SLEEP CARE CONSULTATION ---
Information from patient questionnaire entered by Alex Johnson MA. I have reviewed and concur with the information entered by Alex Johnson MA. This document represents the service I personally performed and the decisions made by , Francesca Galeano ARNP. History of Present Illness Service Date and Time: 07/21/2021 1113 Previous diagnosis: Very Severe, Obstructive Sleep Apnea-Hypopnea Syndrome AHI: 78.8 (in 2009) Reason for follow up: annual (LAST SEEN 07/09/20, KENISHA, NEED CHIP, ) Equipment type: CPAP Equipment obtained from: [employer] (getting supplies as needed) Mask style: Full face Backup mask available: Yes (old mask) Last cushion change: 2 days Prior sleep studies: Yes Year and Where: 2009 - [facility] HPI additional information: AZALIA ARNETT was diagnosed to have very severe, AHI 78.8, obstructive sleep apnea-hypopnea syndrome and returned today for CPAP therapy annual follow-up. Sleep Study - Results Prior sleep studies: Yes Year and Where: 2009 - [facility] Compliance Data - Data Reviewed with Patient Average duration of nightly device use: 6 hours 12 minutes Compliance rate %: 93.3 (30 days; used 30 days) Current pressure setting (cmH2O): 20.0 Humidity settin Heated hose settin Average residual AHI: 17.0 Average large leak: 54 minutes 41 seconds Subjective Missed days of use due to: reports: other (feel asleep in recliner sometimes) Patient concerns: reports: mask leak noise, dry mouth, nose, throat (dry mouth, not sure if it is from the CPAP or his medication). denies: aerophagia, mask discomfort, air blowing in eyes, condensation in mask/hose, nasal congestion, epistaxis, other Observed to snore while using device: No Current pressure setting perceived as: comfortable On therapy, patient: reports: sleeping better, awakening more refreshed, being more awake and alert during the day, more rested overall. denies: drowsiness while driving Initial [place] Sleepiness Scale score: 16 (in 2009) Current [place] Sleepiness Scale score: 6 Allergies and Home Medications Home medication list reviewed: Yes (no changes) Allergy and home medication list: Allergies No Known Drug Allergies Allergy (Verified 08/28/21 12:20) Review of Systems Review of systems same as previous: No (Cauda equina, November 10, 2020) Physical Exam Vital signs obtained and entered by: JAE WOOD Blood Pressure: 128/76 (LEFT , RESP 20, ) Heart Rate: 86 O2 Saturation: 97 (PAPER) Height: 5 ft 11 in Weight: 357 lb (CLOTHES) Weight change since last visit: 2 lb gain Body Mass Index: 49.8 BMI Classification: Morbidly Obese Impression and Plan 1. Obstructive Sleep Apnea-Hypopnea Syndrome, very severe, with good treatment compliance and fair apnea control. On CPAP therapy, the patient has better sleep quality and is more rested overall. Patient has a [employer] that was last updated in 2016. Patient has already registered their device for the recall. Patient denies any black particles seen in machine or hoses, any unusual odors coming from device. Patient has not experienced any physical symptoms such as upper airway irritation, headache, skin or eye irritation, asthma, nausea/vomiting, difficulty breathing or chest pain. Since the patients current machine is at least 5 years old, the patient is opting to update their device with a device that is not on the recall. Thus, the CPAP will be updated. The new CPAPs also have a better humidity system which could assist control of patients dryness symptoms. A DWO prescription will be made. Compliance guidelines for new device and follow up discussed. Patient voiced understanding and agreement with plan. Patient's apnea severity and rationale for treatment to reduce apnea, improve sleep quality and reduce cardiovascular and cerebrovascular events was reviewed. I also reviewed the benefit of consistent device use of CPAP for hypertension, depression and anxiety. 2. Obesity, unspecified. Patient has gained weight. Currently patients BMI is 49.8. Obesity increases the risk of apnea, CPAP pressure requirements and overall health risks especially cardiovascular and diabetes. Thus patient is advised to lose weight. Weight loss can be done with reducing portion size, reducing refined foods and balancing content with vegetables, fruit and whole grain foods. In addition, patient encouraged to get regular exercise. The patient's CPAP pressure range should accommodate some weight loss. Symptoms to report for additional pressure adjustment discussed. * Continue auto CPAP pressure at 20 cmH2O * Update machine * Mask fitting for nasal mask * May use a chinstrap with nasal mask * Notify me if snoring with mask or feeling that the pressure is too much or too little * Attempt to lose weight * Call this office if any problems using CPAP * Return for follow up one month after obtaining new device, or sooner if concerns arise Counseling Topics: Spare mask, Weight loss health impact Visit Type: In Office Time Spent with Patient (minutes): 26 Provider Statement: I spent 100% of the Face to Face Visit with the patient with greater than 50% spent counseling the patient and coordination of care.
== END 2021-07-21 11:14 | disposition home or self-care (01) ==
LOC: SC 11:13
PROVIDERS: ATTEND Nurse Practitioner Family
DX: G47.33 Obstructive sleep apnea (adult) (pediatric) (principal); E66.01 Morbid (severe) obesity due to excess calories; Z68.42 Body mass index [BMI] 45.0-49.9, adult
CPT/HCPCS: 99213; G0463; 99212

== ENCOUNTER 2022-01-16 08:12 | Emergency (ER) | payer MEDICARE, OTHER ==
--- NOTE | 2022-01-16 08:39 | ED Physician Documentation ---
PD HPI BACK PAIN - Stated complaint Stated Complaint: BACK PX - Chief complaint Chief Complaint: Back Pain - History obtained from History obtained from: Patient - Additional information Additional information: 77-year-old gentleman with hypertension, hyperlipidemia, morbid obesity and most notably a history of cauda equina with L4-L5, and L5-S1 laminectomies couple of years ago related to his cauda equina. He always has incontinence of both bowel and bladder and some right leg numbness and over the last couple of days has had increased right lower back pain. No change in his incontinence or neurologic symptoms though. He tried gabapentin and tizanidine which were not too helpful, that said it only hurts in certain positions and declines pain medication on initial evaluation. Review of Systems Ten Systems: 10 systems reviewed and negative Constitutional: denies: Fever, Chills Cardiac: reports: Reviewed and negative Respiratory: reports: Reviewed and negative PD PAST MEDICAL HISTORY - Past Medical History Cardiovascular: None, Arrhythmia Respiratory: None Endocrine/Autoimmune: None GI: GERD, Hepatitis : Benign prostate hypertrophy HEENT: None Psych: None Musculoskeletal: None Derm: None - Past Surgical History Past Surgical History: Yes General: Appendectomy, Other HEENT: Tonsil/Adenoidectomy Derm: Skin cancer surgery - Present Medications Home Medications: Ambulatory Orders Medication Instructions Recorded Confirmed Omeprazole [PriLOSEC] 20 mg PO DAILY 10/04/12 09/09/14 Ezetimibe/Simvastatin [Vytorin 10 mg PO DAILY 12/04/13 09/09/14 10-10 mg Tablet] dilTIAZem HCl [Diltiazem 24Hr ER] 300 mg PO DAILY #30 cap.er.24h 09/09/14 FLUoxetine [PROzac] 10 mg PO DAILY 08/29/16 08/29/16 Heart Medication 08/29/16 Ibuprofen [Motrin] 800 mg PO Q8H PRN #30 tablet 03/05/19 Oxycodone HCl/Acetaminophen 1 - 2 each PO Q6H PRN #14 tablet 11/08/20 [Percocet 5-325 mg Tablet] predniSONE [Deltasone] 20 mg PO [id number] #21 tab 11/08/20 Ibuprofen [Motrin] 800 mg PO Q8H PRN #20 tablet 01/16/22 oxyCODONE [Roxicodone] 5 mg PO Q4-6H PRN #20 tablet 01/16/22 predniSONE [Deltasone] 20 mg PO [id number] #21 tab 01/16/22 - Allergies Allergies/Adverse Reactions: Allergies Allergy/AdvReac Type Severity Reaction Status Date / Time No Known Drug Allergies Allergy Verified 01/16/22 08:25 - Social History Does the pt smoke?: No Smoking Status: Never smoker Does the pt drink ETOH?: No Does the pt have substance abuse?: No - Immunizations Immunizations are current?: Yes - POLST Patient has POLST: No PD ED PE NORMAL - Vitals Vital signs reviewed: Yes - General General: Alert and oriented X 3, Other (He appears comfortable, sitting in his wheeled walker) - Cardiac Cardiac: RRR, No murmur - Respiratory Respiratory: No respiratory distress, Clear bilaterally - Abdomen Abdomen: Normal bowel sounds, Soft, Non tender - Back Back: Other (No midline spinal tenderness, he is tender near the right sciatic notch.) - Extremities Extremities: Other (Venous stasis with compression hose on both legs) - Neuro Neuro: Alert and oriented X 3, Normal speech, Other (Lower extremity neurologic testing is limited by body habitus and venous stasis, I am unable to elicit reflexes in the lower extremities but strength seems good throughout and sensation.) Eye Opening: Spontaneous Motor: Obeys Commands Verbal: Oriented GCS Score: 15 Results - Vitals Vitals: Vital Signs - 24 hr 01/16/22 01/16/22 08:21 13:01 Temperature 35.9 C L Heart Rate 112 H 56 L Respiratory 20 19 Rate Blood Pressure 163/134 H 134/99 H O2 Saturation 98 100 Oxygen O2 Source Room air PD MEDICAL DECISION MAKING - ED course ED course: 77-year-old gentleman with history of cauda equina and chronic back pain pres ents with exacerbation of same. He is worried about a recurrence of cauda equina but really nothing in the history or physical to be too suggestive of that. We ordered an MRI, unfortunately due to her current power outage the MRI is not operational. I offered to the patient that he could stay in the emergency department pending return of electrical power, we could explore transferring him to another hospital, or he could observe his symptoms at home with pain management and he opts for the latter. Departure - Departure Disposition: 01 Home, Self Care Clinical Impression: Back pain Qualifiers: Back pain location: low back pain Chronicity: acute Back pain laterality: right Sciatica presence: without sciatica Qualified Code(s): M54.50 - Low back pain, unspecified Condition: Good Record reviewed to determine appropriate education?: Yes Instructions: ED Neck Back Pain General Prescriptions: predniSONE [Deltasone] 20 mg PO [id number] #21 tab Ibuprofen [Motrin] 800 mg PO Q8H PRN #20 tablet PRN Reason: PAIN &/OR FEVER oxyCODONE [Roxicodone] 5 mg PO Q4-6H PRN #20 tablet PRN Reason: Pain Comments: You were seen today for low back pain. Thankfully there are no symptoms or signs to suggestive of recurrent cauda equina. We had plan to get an MRI but with the power outage the machine is down. You have opted for conservative management at home but please return if you develop worsening incontinence, numbness around your groin or other new weakness or numbness. Follow-up with your primary care physician, next available appointment. I am prescribing a short course of narcotic pain medication for you. These are potentially dangerous and addictive medications that should be used carefully. These medications may constipate you. Take an xqiq-mpo-izbdftz stool softener (docusate) twice daily with plenty of water while taking these medications. If you go 24 hours without a bowel movement, take ywdw-vgl-aarkrab miralax, per package instructions. Do not drink or drive while taking these medications. If you received narcotic or sedating medications while in the emergency department, do not drive for 24 hours. Store this medication in a safe, secure place and out of reach of children. It is a violation of federal law to give or sell this medication to another person or to use in a manner other than prescribed. The ED will not refill narcotic prescriptions, including prescriptions lost or stolen. To dispose of unwanted medications: 1. [facility] [address] in [place] has a medication drop box. They accept prescription medications (in pill form) Tuesday through Tuesday 9:00 a.m. to 5:00 p.m. 2. The [facility] Police Department accepts prescription medications (in pill form only) for disposal year round. Call for more information. 3. Contact the [facility] for the next [facility] sponsored prescription drug collection event. , [id number], or [phone]; Note that many narcotic pain relievers also contain Tylenol/acetaminophen. Please ensure that your total dose of acetaminophen from all sources does not exceed 3 g (3000 mg) per day. Discharge Date/Time: 01/16/22 13:01
[2022-01-16] MEDS ORDERED: oxyCODONE 5 MG TABLET PO STA (09:57)
[2022-01-16] MEDS ORDERED: IBUPROFEN 800 MG TABLET PO STA (09:57)
[2022-01-16 13:03] VITALS: BP 134/99
== END 2022-01-16 13:01 | disposition home or self-care (01) ==
LOC: ED 08:12
DX: M54.50 Low back pain, unspecified (principal)
CPT/HCPCS: 99283; 99284; A9270

== ENCOUNTER 2022-02-17 19:28 | Emergency (ER) | payer MEDICARE, OTHER ==
--- NOTE | 2022-02-17 21:05 | ED Physician Documentation ---
History of Present Illness - Stated complaint Stated Complaint: L LOWER LEG PX - Chief complaint Chief Complaint: Ext Problem - History obtained from History obtained from: Patient - Additonal information Additional information: Patient is a 77-year-old male with a history of atrial fibrillation (on Eliquis) and venous Insufficiency presenting for evaluation of left lower extremity redness and swelling that is been present for 4 days and progressively worsening. Patient reports being ill last week with a low-grade fever. He had taken a home COVID test which was negative. That illness has resolved but he has subsequently developed increased swelling and redness to the left leg.He does wear compression stockings to bilateral lower extremities but has not been able to wear the one on the left leg since the swelling started 4 days ago. Patient is unsure of any known injuries. He has been compliant with his blood thinner.He denies current fevers, chest pain or difficulty breathing. Review of Systems Constitutional: denies: Fever Nose: denies: Congestion Cardiac: denies: Chest pain / pressure Respiratory: denies: Dyspnea GI: denies: Abdominal Pain Skin: reports: Rash Musculoskeletal: reports: Extremity swelling Neurologic: denies: Headache PD PAST MEDICAL HISTORY - Past Medical History Past Medical History: Yes Cardiovascular: None, Peripheral Vascular Disease, Atrial fibrillation, Arrhythmia Respiratory: None Endocrine/Autoimmune: None GI: GERD, Hepatitis : Benign prostate hypertrophy HEENT: None Psych: None Musculoskeletal: None Derm: None - Past Surgical History Past Surgical History: Yes General: Appendectomy, Other HEENT: Tonsil/Adenoidectomy Derm: Skin cancer surgery - Present Medications Home Medications: Ambulatory Orders Medication Instructions Recorded Confirmed Apixaban [Eliquis] 5 mg PO BID 02/17/22 02/17/22 Atorvastatin [Lipitor] 40 mg PO DAILY 02/17/22 02/17/22 Doxycycline Hyclate 100 mg PO BID #20 tab 02/17/22 Gabapentin [Neurontin] See Rx Instructions .ROUTE 02/17/22 02/17/22 .COMPLEX PRN Lactobacillus Combination No.4 02/17/22 [Probiotic] Multivitamin 02/17/22 Pramipexole [Mirapex] 0.25 mg PO QDDINNER 02/17/22 02/17/22 Tamsulosin HCl [Flomax] 0.8 mg PO HS 02/17/22 02/17/22 Trospium Chloride 20 mg PO BID 02/17/22 02/17/22 dilTIAZem HCl [Diltiazem 24Hr ER] 360 mg PO DAILY 02/17/22 tiZANidine [Zanaflex] PRN 02/17/22 - Allergies Allergies/Adverse Reactions: Allergies Allergy/AdvReac Type Severity Reaction Status Date / Time No Known Drug Allergies Allergy Verified 02/17/22 20:30 - Social History Does the pt smoke?: No Smoking Status: Never smoker Does the pt drink ETOH?: No Does the pt have substance abuse?: No - Immunizations Immunizations are current?: Yes - POLST Patient has POLST: No PD ED PE NORMAL - General General: Alert and oriented X 3, No acute distress, Well developed/nourished - HEENT HEENT: Atraumatic - Neck Neck: Supple, no meningeal sign - Cardiac Cardiac: Other (Normal rate, irregularly irregular) - Respiratory Respiratory: No respiratory distress, Clear bilaterally - Abdomen Abdomen: Soft, Non tender - Derm Derm: Other (Faint erythema And warmth to left lower extremity (ankle to knee), No open wounds, no weeping, no crepitus, no fluctuance) - Extremities Extremities: Other (Left lower extremity edema, palpable distal pulses, Motor and sensation grossly intact bilateral lower lower extremities) Results - Vitals Vitals: Vital Signs - 24 hr 02/17/22 02/17/22 02/17/22 19:41 20:41 22:33 Temperature 36.9 C 37.2 C Heart Rate 82 95 91 Respiratory 20 20 20 Rate Blood Pressure 135/95 H 138/90 H 145/94 H O2 Saturation 98 99 99 Oxygen O2 Source Room air PD MEDICAL DECISION MAKING - ED course ED course: Patient with left leg swelling and erythema for 4 days.He does have chronic swelling to bilateral legs but only left leg has worsened.He is already anticoagulated for atrial fibrillation.An ultrasound was negative for DVT.Suspect cellulitis as the etiology for the redness and swelling. Will start on antibiotics. No open wounds to culture. Patient does not appear septic. Pain is not out of proportion to exam to suggest a necrotizing infection. Patient counseled on need for close follow-up as well as advised on strict return precautions. Departure - Departure Disposition: 01 Home, Self Care Clinical Impression: Cellulitis of left lower extremity Condition: Stable Instructions: ED Infec Skin Cellulitis Prescriptions: Doxycycline Hyclate 100 mg PO BID #20 tab Comments: Your ultrasound did not show any signs of a blood clot. I suspect you have a skin infection called cellulitis.I have started you on an antibiotic called doxycycline and sent this prescription to [facility] in [place]. If you have any worsening symptoms such as fevers or any new concerns please consider return to the emergency department. Your symptoms are not improving within 48 hours of starting the antibiotic that I would consider close recheck with your primary care doctor or in the ER. Discharge Date/Time: 02/17/22 22:58
--- NOTE | 2022-02-17 22:32 | Ultrasound Report ---
PROCEDURE: Duplex Ext Veins Left INDICATIONS: redness/swelling TECHNIQUE: Real-time imaging, as well as color and pulse Doppler interrogation, were performed of the lower extr emity deep veins from the inguinal ligament to the popliteal fossa. COMPARISON: None. FINDINGS: Evaluation limited by body habitus and edema as well as patient's inability to tolerate compression. There is grossly patent flow demonstrated within the common femoral, proximal profunda, and superfici al femoral veins on Doppler interrogation. However due to patient's limited ability to tolerate compr ession, nonocclusive thrombus cannot be excluded. The popliteal vein also appears grossly patent on Doppler interrogation but is not well visualized an d nonocclusive thrombus is also not excluded. The posterior tibial and peroneal veins are not well vi sualized due to edema. IMPRESSION: 1. Limited study demonstrates grossly patent flow within the left common femoral, superficial femoral , and popliteal veins on Doppler interrogation. Nonocclusive thrombus cannot be excluded. Reviewed by: Joe Huerta MD on 02/17/2022 10:31 PM PST Approved by: Joe Huerta MD on 02/17/2022 10:31 PM PST Station ID: [id number]
[2022-02-17 22:34] VITALS: BP 145/94
[2022-02-17] MEDS ORDERED: DOXYCYCLINE 100 MG TABLET PO STA (22:35)
== END 2022-02-17 22:58 | disposition home or self-care (01) ==
LOC: ED 19:28
DX: L03.116 Cellulitis of left lower limb (principal); I48.91 Unspecified atrial fibrillation; Z79.01 Long term (current) use of anticoagulants; I73.9 Peripheral vascular disease, unspecified
CPT/HCPCS: 93971; 99282; 99284; A9270

== ENCOUNTER 2022-02-19 20:41 | Emergency (ER) | payer MEDICARE, OTHER ==
[2022-02-19] MEDS ORDERED: oxyCODONE 5 MG TABLET PO STA (21:27)
[2022-02-19] MEDS ORDERED: cefTRIAXone 2 GM VIAL IM STA (21:28)
[2022-02-19] MEDS ORDERED: SULFAMETH/TRIMETH DS 800/160 MG TABLET PO STA (21:30)
--- NOTE | 2022-02-19 21:47 | ED Physician Documentation ---
History of Present Illness - Stated complaint Stated Complaint: LT LEG SWOLLEN & PX - Chief complaint Chief Complaint: Ext Problem - History obtained from History obtained from: Patient - History of Present Illness Timing: How many days ago Pain level max: 6 Pain level now: 5 - Additonal information Additional information: Patient is a 77-year-old male who presents to the emergency department with redness and swelling to the left lower extremity. Has been present for several days. He was seen here 2 days ago and started on doxycycline. He states that the redness is similar, may be slightly worse. No fevers. No chills. Nothing makes it better or worse. Has a history of atrial fibrillation and takes Eliquis. He states that he was told if he is not improving as expected to return here for additional antibiotics. Review of Systems Constitutional: denies: Fever, Chills Nose: denies: Rhinorrhea / runny nose, Congestion Respiratory: denies: Cough GI: denies: Nausea, Vomiting, Diarrhea Skin: denies: Rash Musculoskeletal: denies: Neck pain, Back pain Neurologic: denies: Headache PD PAST MEDICAL HISTORY - Past Medical History Cardiovascular: None, Peripheral Vascular Disease, Atrial fibrillation, Arrhythmia Respiratory: None Endocrine/Autoimmune: None GI: GERD, Hepatitis : Benign prostate hypertrophy HEENT: None Psych: None Musculoskeletal: None Derm: None - Past Surgical History Past Surgical History: Yes General: Appendectomy, Other HEENT: Tonsil/Adenoidectomy Derm: Skin cancer surgery - Present Medications Home Medications: Ambulatory Orders Medication Instructions Recorded Confirmed Apixaban [Eliquis] 5 mg PO BID 02/17/22 02/17/22 Atorvastatin [Lipitor] 40 mg PO DAILY 02/17/22 02/17/22 Doxycycline Hyclate 100 mg PO BID #20 tab 02/17/22 Gabapentin [Neurontin] See Rx Instructions .ROUTE 02/17/22 02/17/22 .COMPLEX PRN Lactobacillus Combination No.4 02/17/22 [Probiotic] Multivitamin 02/17/22 Pramipexole [Mirapex] 0.25 mg PO QDDINNER 02/17/22 02/17/22 Tamsulosin HCl [Flomax] 0.8 mg PO HS 02/17/22 02/17/22 Trospium Chloride 20 mg PO BID 02/17/22 02/17/22 dilTIAZem HCl [Diltiazem 24Hr ER] 360 mg PO DAILY 02/17/22 tiZANidine [Zanaflex] PRN 02/17/22 HYDROcod/ACETAM 5/325 [[place] 5/325] 1 - 2 ea PO Q6H PRN #14 tablet 02/19/22 Sulfamethox/Trimeth 800/160 2 each PO BID #28 tablet 02/19/22 [Bactrim Ds 800/160] cephALEXin [Keflex] 500 mg PO Q6H #28 cap 02/19/22 - Allergies Allergies/Adverse Reactions: Allergies Allergy/AdvReac Type Severity Reaction Status Date / Time No Known Drug Allergies Allergy Verified 02/19/22 21:02 - Social History Does the pt smoke?: No Smoking Status: Never smoker Does the pt drink ETOH?: No Does the pt have substance abuse?: No - Immunizations Immunizations are current?: Yes - POLST Patient has POLST: No PD ED PE NORMAL - Vitals Vital signs reviewed: Yes - General General: Alert and oriented X 3, No acute distress - HEENT HEENT: PERRL, Moist mucous membranes - Neck Neck: Supple, no meningeal sign - Cardiac Cardiac: RRR, Strong equal pulses - Respiratory Respiratory: No respiratory distress, Clear bilaterally - Derm Derm: Warm and dry - Extremities Extremities: Other (Erythema to the left lower leg, mainly anterior aspect of the left hernandez. Up to the level of the knee. No crepitus. No pustules. No drainage. Not circumferential.) - Neuro Neuro: Alert and oriented X 3 - Psych Psych: Normal mood, Normal affect Results - Vitals Vitals: Vital Signs - 24 hr 02/19/22 21:00 Temperature 36.6 C Heart Rate 88 Respiratory 14 Rate Blood Pressure 125/66 O2 Saturation 98 Oxygen O2 Source Room air PD MEDICAL DECISION MAKING - ED course Complexity details: reviewed results, re-evaluated patient, considered differential, d/w patient ED course: 77-year-old male with cellulitis. He is only on doxycycline currently. Given 2 g of Rocephin IM here. Given Bactrim. We will place on Bactrim and Augmentin for home and have him follow-up closely with his doctor. He is very well- appearing, nontoxic. Afebrile.No inpatient beds are available at this time. Patient counseled regarding signs and symptoms for which I believe and urgent re-evaluation would be necessary. Patient with good understanding of and agreement to plan and is comfortable going home at this time This document was made in part using voice recognition software. While efforts are made to proofread this document, sound alike and grammatical errors may occur. Departure - Departure Disposition: 01 Home, Self Care Clinical Impression: Cellulitis of left lower extremity Condition: Good Instructions: ED Infec Skin Cellulitis Follow-Up: your,doctor in 3 days [Other] Prescriptions: Sulfamethox/Trimeth 800/160 [Bactrim Ds 800/160] 2 each PO BID #28 tablet cephALEXin [Keflex] 500 mg PO Q6H #28 cap HYDROcod/ACETAM 5/325 [[place] 5/325] 1 - 2 ea PO Q6H PRN #14 tablet PRN Reason: Pain Comments: Please stop the doxycycline. We will change your antibiotics to Bactrim and Keflex. Please hold your lisinopril while you are taking the Bactrim. Please follow-up with your doctor closely for further care. Please return if you are failing to improve within the next 24 to 48 hours. I am prescribing a short course of narcotic pain medication for you. These are potentially dangerous and addictive medications that should be used carefully. These medications may constipate you. Take an kfdo-lfo-iefbhru stool softener (docusate) twice daily with plenty of water while taking these medications. If you go 24 hours without a bowel movement, take xadq-twc-rkxaflx miralax, per package instructions. Do not drink or drive while taking these medications. If you received narcotic or sedating medications while in the emergency department, do not drive for 24 hours. Store this medication in a safe, secure place and out of reach of children. It is a violation of federal law to give or sell this medication to another person or to use in a manner other than prescribed. The ED will not refill narcotic prescriptions, including prescriptions lost or stolen. To dispose of unwanted medications: 1. [facility] at [address] in [place] has a medication drop box. They accept prescription medications (in pill form) Tuesday through Tuesday 9:00 a.m. to 5:00 p.m. 2. The [facility] Police Department accepts prescription medications (in pill form only) for disposal year round. Call for more information. 3. Contact the [facility] for the next [facility] sponsored prescription drug collection event. , [id number], or [id number];
[2022-02-19 22:13] VITALS: BP 110/63
== END 2022-02-19 22:12 | disposition home or self-care (01) ==
LOC: ED 20:41
DX: L03.116 Cellulitis of left lower limb (principal)
CPT/HCPCS: 96372; 99282; 99283; A9270

== ENCOUNTER 2022-02-22 13:06 | Emergency (ER) | payer MEDICARE, OTHER ==
[2022-02-22] MEDS ORDERED: diphenhydrAMINE 25 MG CAPSULE PO STA (13:21)
[2022-02-22 13:37] LABS: BASOPHILS % (AUTO) 0.3 %; EOSINOPHILS # (AUTO) 0.3 10^3/uL (0.0-0.7); HGB - HEMOGLOBIN 13.4 g/dL (14.0-18.0); LYMPHOCYTES # (AUTO) 0.8 10^3/uL (1.5-3.5); MEAN CORPUSCULAR HEMOGLOBIN 29.1 pg (27.0-31.0); MEAN CORPUSCULAR HGB CONC 32.7 g/dL (32.0-36.0); MEAN CORPUSCULAR VOLUME 89.1 fL (80.0-94.0); MEAN PLATELET VOLUME 10.3 fL (7.4-11.4); MONOCYTES # (AUTO) 0.7 10^3/uL (0.0-1.0); MONOCYTES % (AUTO) 5.3 %; NEUTROPHILS # (AUTO) 10.9 10^3/uL (1.5-6.6); NEUTROPHILS % (AUTO) 85.3 %; PLT - PLATELET COUNT 283 10^3/uL (130-450); RED CELL DISTRIBUTION WIDTH 14.6 % (12.0-15.0); WHITE BLOOD COUNT 12.7 x10^3/uL (4.8-10.8)
[2022-02-22] MEDS ORDERED: HYDROmorphone 2 MG TABLET PO STA (13:46)
--- NOTE | 2022-02-22 13:47 | ED Physician Documentation ---
History of Present Illness - Stated complaint Stated Complaint: FALL/HEAD INJ - Chief complaint Chief Complaint: General - History obtained from History obtained from: Patient, Family, EMS - History of Present Illness Timing: Today Pain level max: 5 Pain level now: 4 - Additonal information Additional information: Patient is a 77-year-old male who presents to the emergency department after ground-level fall today. He was getting out of the bathtub when he slipped fell and struck his head. No loss of consciousness. No vomiting. No numbness or tingling. No neck or back pain. He is currently on antibiotics for left lower extremity cellulitis. No fevers. No chills. States the redness is decreasing. Review of Systems Constitutional: denies: Fever, Chills Throat: denies: Sore throat Cardiac: denies: Chest pain / pressure Respiratory: denies: Cough GI: denies: Abdominal Pain, Nausea, Vomiting, Diarrhea Skin: denies: Rash Musculoskeletal: denies: Neck pain, Back pain Neurologic: denies: Focal weakness, Numbness, Confused, LOC PD PAST MEDICAL HISTORY - Past Medical History Cardiovascular: None, Peripheral Vascular Disease, Atrial fibrillation, Arrhythmia Respiratory: None Endocrine/Autoimmune: None GI: GERD, Hepatitis : Benign prostate hypertrophy HEENT: None Psych: None Musculoskeletal: None Derm: None - Past Surgical History Past Surgical History: Yes General: Appendectomy, Other HEENT: Tonsil/Adenoidectomy Derm: Skin cancer surgery - Present Medications Home Medications: Ambulatory Orders Medication Instructions Recorded Confirmed Apixaban [Eliquis] 5 mg PO BID 02/17/22 02/17/22 Atorvastatin [Lipitor] 40 mg PO DAILY 02/17/22 02/17/22 Doxycycline Hyclate 100 mg PO BID #20 tab 02/17/22 Gabapentin [Neurontin] See Rx Instructions .ROUTE 02/17/22 02/17/22 .COMPLEX PRN Lactobacillus Combination No.4 02/17/22 [Probiotic] Multivitamin 02/17/22 Pramipexole [Mirapex] 0.25 mg PO QDDINNER 02/17/22 02/17/22 Tamsulosin HCl [Flomax] 0.8 mg PO HS 02/17/22 02/17/22 Trospium Chloride 20 mg PO BID 02/17/22 02/17/22 dilTIAZem HCl [Diltiazem 24Hr ER] 360 mg PO DAILY 02/17/22 tiZANidine [Zanaflex] PRN 02/17/22 HYDROcod/ACETAM 5/325 [Wallagrass 5/325] 1 - 2 ea PO Q6H PRN #14 tablet 02/19/22 HYDROmorphone [Dilaudid] 2 mg PO Q4-6H PRN #14 tablet 02/22/22 Sulfamethox/Trimeth 800/160 2 each PO BID #28 tablet 02/22/22 [Bactrim Ds] cephALEXin [Keflex] 500 mg PO Q6H #28 cap 02/22/22 - Allergies Allergies/Adverse Reactions: Allergies Allergy/AdvReac Type Severity Reaction Status Date / Time No Known Drug Allergies Allergy Verified 02/19/22 21:02 - Social History Does the pt smoke?: No Smoking Status: Never smoker Does the pt drink ETOH?: No Does the pt have substance abuse?: No - Immunizations Immunizations are current?: Yes - POLST Patient has POLST: No PD ED PE NORMAL - Vitals Vital signs reviewed: Yes - General General: Alert and oriented X 3, No acute distress, Well developed/nourished - HEENT HEENT: Atraumatic, PERRL, Ears normal, Moist mucous membranes, Pharynx benign - Neck Neck: Supple, no meningeal sign, No bony TTP - Cardiac Cardiac: RRR, Strong equal pulses - Respiratory Respiratory: No respiratory distress, Clear bilaterally - Abdomen Abdomen: Soft, Non tender, Non distended - Back Back: No CVA TTP, No spinal TTP - Derm Derm: Warm and dry - Extremities Extremities: Other (Bilateral lower extremity lymphedema. Erythema from the left knee down to the dorsum of the foot. It is within the lines that were previously drawn and decreasing in size and intensity of erythema.) - Neuro Neuro: Alert and oriented X 3 - Psych Psych: Normal mood, Normal affect Results - Vitals Vitals: Vital Signs - 24 hr 02/22/22 02/22/22 02/22/22 13:12 14:05 15:24 Temperature 36.9 C Heart Rate 88 91 110 H Respiratory 22 17 Rate Blood Pressure 151/89 H 152/96 H 122/80 O2 Saturation 98 97 98 Oxygen O2 Source Room air - Labs Labs: Laboratory Tests 02/22/22 02/22/22 13:25 13:25 WBC 12.7 H RBC 4.60 L Hgb 13.4 L Hct 41.0 L MCV 89.1 MCH 29.1 MCHC 32.7 RDW 14.6 Plt Count 283 MPV 10.3 Neut # (Auto) 10.9 H Lymph # (Auto) 0.8 L [place] # (Auto) 0.7 Eos # (Auto) 0.3 Baso # (Auto) 0.0 Absolute Nucleated RBC 0.00 Nucleated RBC % 0.0 Manual Slide Review Indicated Platelet Estimate NORMAL (130-450,000) Platelet Morphology NORMAL APPEARANCE RBC Morph Micro Appear 1+ ACANTHOCYTES Sodium 134 L Potassium 3.9 Chloride 104 Carbon Dioxide 19 L Anion Gap 11.0 BUN 13 Creatinine 0.8 Estimated GFR (MDRD) 94 Glucose 98 Calcium 8.6 - Rads (name of study) Head CT Radiology: Final report received, See rad report (No acute abnormality) PD MEDICAL DECISION MAKING - ED course Complexity details: reviewed results, re-evaluated patient, considered differential, d/w patient, d/w family ED course: 77-year-old male presents to the emergency department after ground-level fall. No acute findings on head CT. Also has cellulitis. Given extra dose of Rocephin here. We will extend his antibiotic course another week. He sees his PCP next week. No evidence of necrotizing fasciitis. No evidence of sepsis. No fevers. Patient counseled regarding signs and symptoms for which I believe and urgent re-evaluation would be necessary. Patient with good understanding of and agreement to plan and is comfortable going home at this time This document was made in part using voice recognition software. While efforts are made to proofread this document, sound alike and grammatical errors may occur. Departure - Departure Disposition: 01 Home, Self Care Clinical Impression: Cellulitis of left lower extremity Fall Qualifiers: Encounter type: initial encounter Qualified Code(s): W19.XXXA - Unspecified fall, initial encounter Head injury Qualifiers: Encounter type: initial encounter Qualified Code(s): S09.90XA - Unspecified injury of head, initial encounter Condition: Good Instructions: ED Infec Skin Cellulitis, ED Head Injury Closed Follow-Up: Nathan Loaiza MD [Primary Care Provider] - Within 1 week Prescriptions: Sulfamethox/Trimeth 800/160 [Bactrim Ds] 2 each PO BID #28 tablet HYDROmorphone [Dilaudid] 2 mg PO Q4-6H PRN #14 tablet PRN Reason: leg pain cephALEXin [Keflex] 500 mg PO Q6H #28 cap Comments: Your prescriptions were sent to [facility] in [place]. Please follow-up with your doctor as scheduled for repeat evaluation. Continue the antibiotics as previously prescribed. We have given you another weeks worth of antibiotics to continue as your cellulitis is improving. Please return if you worsen. Your head CT does not show any acute abnormalities today. I am prescribing a short course of narcotic pain medication for you. These are potentially dangerous and addictive medications that should be used carefully. These medications may constipate you. Take an [id number] stool softener (docusate) twice daily with plenty of water while taking these medications. If you go 24 hours without a bowel movement, take [id number] miralax, per package instructions. Do not drink or drive while taking these medications. If you received narcotic or sedating medications while in the emergency department, do not drive for 24 hours. Store this medication in a safe, secure place and out of reach of children. It is a violation of federal law to give or sell this medication to another person or to use in a manner other than prescribed. The ED will not refill narcotic prescriptions, including prescriptions lost or stolen. To dispose of unwanted medications: 1. [facility] [address] in [place] has a medication drop box. They accept prescription medications (in pill form) Tuesday through Tuesday 9:00 a.m. to 5:00 p.m. 2. The [facility] [employer] accepts prescription medications (in pill form only) for disposal year round. Call for more information. 3. Contact the [facility] for the next [facility] sponsored prescription drug collection event. , [phone], or [phone]; Discharge Date/Time: 02/22/22 15:24
[2022-02-22 13:57] LABS: SLIDE REVIEW? Indicated
[2022-02-22 13:58] LABS: PLATELET ESTIMATE, MANUAL NORMAL (130-450,000) (NORMAL); PLATELET MORPHOLOGY NORMAL APPEARANCE (NORMAL); RBC MORPHOLOGY (MULTIPLE) 1+ ACANTHOCYTES (NORMAL)
[2022-02-22 14:01] LABS: CREATININE 0.8 mg/dL (0.6-1.2)
[2022-02-22 14:15] LABS: CALCIUM 8.6 mg/dL (8.5-10.3); POTASSIUM 3.9 mmol/L (3.5-5.0)
--- NOTE | 2022-02-22 14:18 | CT Report ---
PROCEDURE: HEAD WO INDICATIONS: Trauma, fall, head injury TECHNIQUE: Noncontrast 4.5 mm thick angled axial sections acquired from the foramen magnum to the vertex. For r adiation dose reduction, the following was used: automated exposure control, adjustment of mA and/or kV according to patient size. COMPARISON: 03/05/2019 FINDINGS: Image quality: Excellent. CSF spaces: Basal cisterns are patent. Ventricles are normal in size and shape. Brain: Mild global cerebral volume loss and chronic microvascular ischemic changes again noted. No m idline shift. No acute intracranial hemorrhage, abnormal extra-axial fluid collection, mass effect, o r midline shift. Skull and face: Calvarium and visualized facial bones are intact, without suspicious lesions. Sinuses: Visualized sinuses and mastoids are clear. IMPRESSION: No acute intracranial abnormality. Reviewed by: Felipe Sandoval MD on 02/22/2022 2:17 PM PST Approved by: Felipe Sandoval MD on 02/22/2022 2:17 PM PST Station ID: [id number]
[2022-02-22] MEDS ORDERED: cefTRIAXone 1 GM VIAL IM STA (14:32)
[2022-02-22] MEDS ORDERED: LIDOCAINE 1% 2 ML VIAL ONE (15:04)
[2022-02-22 15:25] VITALS: BP 122/80
== END 2022-02-22 15:24 | disposition home or self-care (01) ==
LOC: EDUNIT# → ED 13:06
DX: S09.90XA Unspecified injury of head, initial encounter (principal); W18.2XXA Fall in (into) shower or empty bathtub, initial encounter; L03.116 Cellulitis of left lower limb; I73.9 Peripheral vascular disease, unspecified; I48.91 Unspecified atrial fibrillation; N40.0 Benign prostatic hyperplasia without lower urinary tract symptoms
CPT/HCPCS: 36415; 70450; 80048; 85025; 96372; 99284; A9270

== ENCOUNTER → 2022-02-22 | Outpatient (CLI) | payer MEDICARE, OTHER | END | disposition critical access hospital (66) | LOC: EMS 12:49 | DX: S09.90XA Unspecified injury of head, initial encounter (principal); R11.0 Nausea; W01.0XXA Fall on same level from slipping, tripping and stumbling without subsequent striking against object, initial encounter; Y92.002 Bathroom of unspecified non-institutional (private) residence as the place of occurrence of the external cause; Z79.01 Long term (current) use of anticoagulants; L03.116 Cellulitis of left lower limb | CPT/HCPCS: A0425; A0429 ==

== ENCOUNTER 2022-11-16 08:00 | Outpatient (CLI) | payer MEDICARE, OTHER ==
--- NOTE | 2022-11-16 14:28 | XRAY Report ---
PROCEDURE: Knee 4 View RT INDICATIONS: RIGHT KNEE PAIN TECHNIQUE: 4 views of the right knee(s) were acquired. COMPARISON: July 15, 2016 FINDINGS: Bones: Moderate to severe right knee degenerative changes, particularly the medial compartment, prog ressed compared to 2017. Partially visualized left knee with moderate degenerative changes. No displa nii fracture or dislocation. Patellar enthesopathy. Possible superior positioning of the patella in r elation to the femur. Soft tissues: Soft tissue swelling. Possible trace knee joint effusion. IMPRESSION: Moderate to severe degenerative changes, progressed compared to 2017. Patellar enthesopathy. On later al view, the patella appears slightly superiorly positioned. If there is high concern for further corbin angement, consider MRI evaluation. Partially visualized left knee with moderate degenerative changes. Reviewed by: Bud Pedersen MD on 11/16/2022 2:27 PM PDT Approved by: Bud Pedersen MD on 11/16/2022 2:27 PM PDT Station ID: [id number]
== END 2022-11-16 23:59 | disposition home or self-care (01) ==
LOC: DI.WOS 08:00
PROVIDERS: ATTEND Physician Assistant Surgical
DX: M17.0 Bilateral primary osteoarthritis of knee (principal); M76.51 Patellar tendinitis, right knee

== ENCOUNTER 2023-07-12 15:28 | Outpatient (CLI) | payer MEDICARE, OTHER | END 2023-07-12 23:59 | disposition left against medical advice (07) | LOC: EMS 15:28 | DX: Z03.89 Encounter for observation for other suspected diseases and conditions ruled out (principal); G83.4 Cauda equina syndrome; R26.81 Unsteadiness on feet; W18.30XA Fall on same level, unspecified, initial encounter ==

== ENCOUNTER 2023-09-20 13:48 | Outpatient (CLI) | payer MEDICARE, OTHER ==
[2023-09-20 14:26] LABS: CALCIUM 9.7 mg/dL (8.5-10.3); CREATININE 0.8 mg/dL (0.6-1.3)
== END 2023-09-20 13:49 | disposition home or self-care (01) ==
LOC: LAB 13:48
PROVIDERS: ATTEND Otolaryngology
DX: H93.8X2 Other specified disorders of left ear (principal)
CPT/HCPCS: 36415; 80048

== ENCOUNTER 2023-10-28 18:28 | Outpatient (CLI) | payer MEDICARE, OTHER | END 2023-10-28 18:29 | disposition home or self-care (01) | LOC: RT 18:28 | PROVIDERS: ATTEND Otolaryngology | DX: Z01.818 Encounter for other preprocedural examination (principal) | CPT/HCPCS: 93005 ==